=== PATIENT | male | born 1960 | race Caucasian/White ===

== ENCOUNTER 2023-03-31 09:30 | Outpatient (OUT) | payer OTHER, SELFPAY ==
--- NOTE | 2023-03-31 09:34 | CT_ITS ---
[address] [address] Patient Name: HEATHER PIRES MRN: [id number] date: 1960 Sex: M Assigned Patient Location: CT Current Patient Location: Accession/Order Number: [id number] Exam Date: 03/31/2023 09:40 Report Date: 04/01/2023 09:58 At the request of: MANJULA PIEDRA Procedure: CT lung screening low-dose EXAM TYPE: CT lung screening low-dose INDICATION: Current smoker COMPARISON: Noncontrast CT of the chest 03/04/2022, 09/06/2021 TECHNIQUE: Noncontrast, Low dose, helical axial images of the chest were obtained, and thin section, axial MIP, and coronal and sagittal reformats were also submitted from the acquisition scanner under radiologist supervision. Each series was submitted in a lung algorithm. Dose reduction techniques were achieved by using automated exposure control and/or adjustment of mA and/or kV according to patient size and/or use of iterative reconstruction technique. FINDINGS: Please note that this examination was tailored for evaluation of pulmonary nodules, and therefore soft tissue detail is suboptimal. Heart size within normal limits. No pericardial effusion. No aortic aneurysm. No mediastinal, hilar or axillary lymphadenopathy. No central endobronchial nodule. Diffuse emphysematous change. No consolidation or pleural effusion. Calcified granuloma right lower lobe. Bronchial wall thickening with mild fissural nodularity. Stable 3 mm right lower lobe nodule (3, 105) Small sliding hiatal hernia. No acute findings in the upper abdomen. No acute fracture or dislocation. Spondylosis thoracic spine. IMPRESSION : Chronic changes of COPD. Lung RADS category 2: Benign. RECOMMENDATIONS: Continued annual LD screening CT scan of the chest. Electronically authenticated by: CAROLYN MOORE Date: 04/01/2023 09:58
== END 2023-03-31 09:31 | disposition home or self-care (01) ==
LOC: CT 09:30
PROVIDERS: PCP Family Medicine; Visit Provider Family Medicine
DX: F17.210 Nicotine dependence, cigarettes, uncomplicated (principal)
CPT/HCPCS: 71271

== ENCOUNTER 2023-08-09 10:29 | Outpatient (OUT) | payer OTHER, SELFPAY ==
--- OUTSIDE RECORDS SUMMARY | 2023-08-09 10:37 | XMS_ITS | CCD ---
Author Organization [facility] Care Team Providers Care School Social Worker Name Role Phone FEDERICA ., DR VERA Attending Unavailable ALAMO ., DR VERA Admitting Unavailable FURLONG, DR BABATUNDE Florez Primary Care Unavailable ALAMO ., DR VERA Consulting Unavailable FURLONG, DR BABATUNDE Florez Attending Unavailable FURLONG, DR BABATUNDE Florez Admitting Unavailable FURLONG, DR BABATUNDE Florez Primary Care Unavailable FURLONG, DR BABATUNDE Florez Consulting Unavailable ZIEBER, DR BERTHA Sher Consulting Unavailable FURLONG, DR BABATUNDE Florez Consulting Unavailable FURLONG, DR BABATUNDE Florez Attending Unavailable FURLONG, DR BABATUNDE Florez Admitting Unavailable FURLONG, DR BABATUNDE Florez Primary Care Unavailable FLAGSTAFF, DR RAY Francis Consulting Unavailable BABATUNDE FOREMAN Primary Care Physician [phone] Jaime ALAMO Attending Unavailable Jaime ALAMO Attending Unavailable Furlong Babautnde CALLEJAS Primary Care Provider Allergies Allergy Classification Reported Allergen(s) Allergy Type Date of Onset Reaction(s) Facility (3 sources) Penicillin; Translations: [penicillin] Drug Allergy Hives [facility] Repository (1 source) Penicillins Propensity to adverse reactions to drug 2 Hives, Itching [facility] Medications Current Medications Medication Drug Class(es) Dates Sig (Normalized) Sig (Original) aspirin 81 mg delayed release oral tablet (1 source) Platelet Aggregation Inhibitor, Nonsteroidal Anti-inflammatory Drug take 1 tablet by mouth in the morning aspirin 81 mg Take 1 tablet (81 mg total) by mouth in the morning. 0 Active benazepril hydrochloride 20 mg / hydroCHLOROthiazide 12.5 mg oral tablet (2 sources) Thiazide Diuretic, Angiotensin Converting Enzyme Inhibitor Start: 04-09-2023 take 2 tablets by mouth once daily benazepril-hydr oCHLOROthiazide (LOTENSIN HCT) 20-12.5 mg per tablet TAKE 2 TABLETS BY MOUTH EVERY DAY 180 tablet 1 04/09/2023 Active Start: 12-05-2019 take 1 tablet by liu th once daily benazepril-hydrochlorothiazide 20 mg-12. 5 mg Tab tab(s), Oral, Daily, Refill(s) 0 Start Date: 12/05/19 Status: Ordered ibuprofen 200 mg oral tablet (1 source) Nonsteroidal Anti-inflammatory Drug take 1 tablet by mouth every six hours as needed for pain ibuprofen (ADVIL,MOTRIN) 200 mg tablet Take 1 tablet (200 mg total) by mouth every 6 (six) hours as needed for pain. 0 Active icosapent ethyl 1000 mg oral capsule (1 source) Start: 2022 take 2 capsules by mouth at bedtime icosapent ethyL (VASCEPA) 1 gram capsule Indications: Hypertriglyceridemia Take 2 capsules (2 g total) by mouth in the morning and 2 capsules (2 g total) before bedtime. 360 capsule 3 03/09/2023 Active Multi Vitamin+ (1 source) Start: 2019 Multi Vitamin+ Refill(s) 0 Start Date: 12/05/19 Status: Ordered multivitamin-min erals-lutein (MULTIVITAMIN 50 PLUS) tablet (1 source) multivitamin-min erals-lute in (MULTIVITAMIN 50 PLUS) tablet daily. 0 Active omega-3 acid ethyl esters (group home) 1000 mg oral capsule (2 sources) Start: 2023 omega-3 acid ethyl esters (LOVAZA) 1 gram capsule TAKE 2 CAPSULES BY MOUTH TWICE DAILY 360 capsule 1 05/15/2023 Active Start: 06-23-2022 omega-3 polyun saturated fatty acids ethyl esters 1000 mg Cap Refills(s) 0 Start Date: 06/23/22 Status: Ordered psyllium seed, sugar, (METAMUCIL, SUGAR,) powder (1 source) psyllium seed, s ugar, (METAMUCIL, SUGAR,) powder daily. 0 Active rosuvastatin calcium 40 mg oral tablet (2 sources) HMG-CoA Reductase Inhibitor Start: take 1 tablet by mouth once daily rosuvastatin (CRESTOR) 40 mg tablet TAKE 1 TABLET BY MOUTH EVERY DAY 90 tablet 3 04/09/2023 Active Start: 12-05-2019 take 1 mg by mouth once daily rosuvastatin 40 mg Tab mg tab(s), Oral, Daily, Refills(s) 0 Start Date: 12/05/19 Status: Ordered tamsulosin hydrochloride 0.4 mg oral capsule (2 sources) alpha-Adrenergic Lida Start: 01-09-2022 take 1 capsule by mouth once daily Flomax 0.4 mg Cap 0.4 mg = 1 cap(s), Oral, Daily, # 90 cap(s), Refills(s) 3, Pharmacy: [facility] #[id number], 195, cm, 06/20/21 9:32:00 EST, Height/Length Dosing, 135, kg, 06/20/21 9:32:00 EST, Weight Dosing Start Date: 01/09/22 Status: Ordered Problems Active Problems Problem Classification Problem Date Documented Date Episodic/Chronic Disorders of lipid metabolism (2 sources) Hyperlipidemia; Translations: [Hyperlipidemia, unspecified] Onset: 02-27-2022 12-05-2019 Chronic Diverticulosis and diverticulitis (1 source) Diverticulosis of sigmoid colon; Translations: [Diverticulosis of large intestine without perforation or abscess without bleeding] Onset: 04-13-2020 02-27-2022 Chronic Essential hypertension (2 sources) Hypertensive disorder; Translations: [Essential hypertension] Onset: 02-27-2022 12-05-2019 Chronic Hyperplasia of prostate (7 sources) Benign prostatic hyperplasia with lower urinary tract symptoms; Translations: [Benign prostatic hypertrophy with outflow obstruction] Onset: 02-27-2022 Chronic Other nutritional; endocrine; and metabolic disorders (1 source) Obesity; Translations: [Obesity, unspecified] Onset: 02-27-2022 02-27-2022 Chronic Residual codes; unclassified (1 source) Family history of cancer; Translations: [Family history of malignant neoplasm of prostate] Onset: 06-23-2022 Episodic Residual codes; unclassified (1 source) Family history of prostate cancer 06-23-2022 Episodic Substance-related disorders (1 source) Nicotine dependence, cigarettes, uncomplicated; Translations: [NICOTINE DEPEND CIGARETTES UNCOMP] Onset: 08-31-2021 Chronic Unclassified (1 source) Asymptomatic microscopic hematuria 06-23-2022 Past or Other Problems Problem Classification Problem Date Documented Da te Episodic/Chronic Abdominal hernia (1 source) Bilateral inguinal hernia; Translations: [Bilateral inguinal hernia, without obstruction or gangrene, not specified as recurrent] Onset: 12-14-2019 02-27-2022 Episodic Disorders of teeth and jaw (1 source) Gingival disease; Translations: [Disorder of gingiva and edentulous alveolar ridge, unspecified] Onset: 11-14-2017 02-27-2022 Episodic Genitourinary symptoms and ill-defined conditions (2 sources) Microscopic hematuria; Translations: [Asymptomatic microscopic hematuria] Onset: 06-23-2022 Episodic Heart valve disorders (2 sources) Heart murmur; Translations: [Cardiac murmur, unspecified] Onset: 02-27-2022 12-05-2019 Episodic Mood disorders (1 source) Mood disorders Onset: 03-09-2023 03-09-2023 Other diseases of veins and lymphatics (1 source) Venous stasis syndrome ; Translations: [Other specified disorders of veins] Onset: 02-27-2022 02-27-2022 Episodic Other lower respiratory disease (4 sources) Solitary pulmonary nodule; Translations: [SOLITARY PULMONARY NODULE] Onset: 03-04-2022 Episodic Other screening for suspected conditions (not mental disorders or infectious disease) (1 source) Abnormal liver function; Translations: [Abnormal results of liver function studies] Onset: 02-27-2022 02-27-2022 Episodic Spondylosis; intervertebral disc disorders; other back problems (4 sources) Cervicalgia; Translations: [CERVICALGIA] Onset: 08-27-2021 Episodic Unclassified (1 source) Onset: 03-09-2023 03-09-2023 Varicose veins of lower extremity (1 source) Skin ulcer; Translations: [Varicose veins of unspecified lower extremity with ulcer of unspecified site] Onset: 02-27-2022 02-27-2022 Episodic Results Test Name Value Interpretation Reference Range Facility [facility] 2022 Lab Reports [id number]: 127 Normal [facility] Patient Educationon 06-24-19 Patient Education Urology Benign Prostatic Hyperplasia Benign prostatic hyperplasia (BPH) is an enlarged prostate gland that is caused by the normal aging process and not by cancer. The prostate is a walnut-sized gland that is involved in the production of semen. It is located in front of the rectum and below the bladder. The bladder stores urine and the urethra is the tube that carries the urine out of the body. The prostate may get bigger as a man gets older. An enlarged prostate can press on the urethra. This can make it harder to pass urine. The build-up of urine in the bladder can cause infection. Back pressure and infection may progress to bladder damage and kidney (renal) failure. What are the causes? This condition is part of a normal aging process. However, not all men develop problems from this condition. If the prostate enlarges away from the urethra, urine flow will not be blocked. If it enlarges toward the urethra and compresses it, there will be problems passing urine. What increases the risk? This condition is more likely to develop in men over the age of 50 years. What are the signs or symptoms? Symptoms of this condition include: ? Getting up often during the night to urinate. ? Needing to urinate frequently during the day. ? Difficulty starting urine flow. ? Decrease in size and strength of your urine stream. ? Leaking (dribbling) after urinating. ? Inability to pass urine. This needs immediate treatment. ? Inability to completely empty your bladder. ? Pain when you pass urine. This is more common if there is also an infection. ? Urinary tract infection (UTI). How is this diagnosed? This condition is diagnosed based on your medical history, a physical exam, and your symptoms. Tests will also be done, such as: ? A post-void bladder scan. This measures any amount of urine that may remain in your bladder after you finish urinating. ? A digital rectal exam. In a rectal exam, your health care provider checks your prostate by putting a lubricated, gloved finger into your rectum to feel the back of your prostate gland. This exam detects the size of your gland and any abnormal lumps or growths. ? An exam of your urine (urinalysis). ? A prostate specific antigen (PSA) screening. This is a blood test used to screen for prostate cancer. ? An ultrasound. This test uses sound waves to electronically produce a picture of your prostate gland. Your health care provider may refer you to a specialist in kidney and prostate diseases (urologist). How is this treated? Once symptoms begin, your health care provider will monitor your condition (active surveillance or watchful waiting). Treatment for this condition will depend on the severity of your condition. Treatment may include: ? Observation and yearly exams. This may be the only treatment needed if your condition and symptoms are mild. ? Medicines to relieve your symptoms, including: ? Medicines to shrink the prostate. ? Medicines to relax the muscle of the prostate. ? Surgery in severe cases. Surgery may include: ? Prostatectomy. In this procedure, the prostate tissue is removed completely through an open incision or with a laparoscope or robotics. ? Transurethral resection of the prostate (TURP). In this procedure, a tool is inserted through the opening at the tip of the penis (urethra). It is used to cut away tissue of the inner core of the prostate. The pieces are removed through the same opening of the penis. This removes the blockage. ? Transurethral incision (TUIP). In this procedure, small cuts are made in the prostate. This lessens the prostate's pressure on the urethra. ? Transurethral microwave thermotherapy (TUMT). This procedure uses microwaves to create heat. The heat destroys and removes a small amount of prostate tissue. ? Transurethral needle ablation (TUNA). This procedure uses radio frequencies to destroy and remove a small amount of prostate tissue. ? Interstitial laser coagulation (ILC). This procedure uses a laser to destroy and remove a small amount of prostate tissue. ? Transurethral electrovaporization (TUVP). This procedure uses electrodes to destroy and remove a small amount of prostate tissue. ? Prostatic urethral lift. This procedure inserts an implant to push the lobes of the prostate away from the urethra. Follow these instructions at home: ? Take [id number] and prescription medicines only as told by your health care provider. ? Monitor your symptoms for any changes. Contact your health care provider with any changes. ? Avoid drinking large amounts of liquid before going to bed or out in public. ? Avoid or reduce how much caffeine or alcohol you drink. ? Give yourself time when you urinate. ? Keep all follow-up visits as told by your health care provider. This is important. Contact a health care provider if: ? You have unexplained back pain. ? Your symptoms do not get better with treatment. ? You d (more content not included)... Normal [facility] Urology Office/Clinic Noteon 06-23-2022 Urology Office/Clinic Note Chief Complaint 1 year with PSA HPI Staff Pt is here for 1 year f/u with PSA. Previous dx of BPH with urinary obstruction, microhematuria and family hx of prostate cancer. Current PSA done 06/14/22 is 0.76 and previous done 06/09/21 was 0.99. Pt continues taking Tamsulosin 0.4mg qd. Dysuria: no Incomplete bladder emptying: no Hematuria: no Frequency: no Urgency: no Nocturia: 1-2x Stream: good stream no straining Leaking: no Post void dripping: no Wearing pads/ Depends: no Urge incontinence: no Stress incontinence: no Incontinence without Sensory Awareness: no Abdominal pain: no Flank pain: no Sexual complaints: no History of Present Illness Tests reviewed: reviewed UA & PSA. I have reviewed the previous health record information and history for this patient from Dr. Alamo. I have reviewed and verified the staff HPI to be accurate for this encounter. There have been no associated fever, chills, flank pain, or blood in the urine. Denies any urinary infections since last encounter. Review of Systems PHQ Score Initial Depression Screen Score: 0 ROS - Provider Constitutional: denies weight loss, denies hot flashes. Eyes: denies eye problems. Gastrointestinal: denies nausea, denies vomiting. Cardiovascular: denies chest pain or angina. Integumentary: no dryness Musculoskeletal: denies musculoskeletal symptoms. ENMT: denies otolaryngeal symptoms. Respiratory: no shortness of breath. Heme/Lymph: denies easy bleeding tendency, denies easy bruising tendency. Psychiatric: no confusion, no anxiety. Genitourinary: denies dysuria, denies hematuria, denies discharge, denies urinary frequency, denies urinary hesitancy, denies nocturia, denies incontinence, denies genital sores, denies decreased libido, and denies erectile dysfunction. Physical Exam Vitals & Measurements HR: 82(Peripheral) RR: 16 BP: 136/86 HT: 77 in HT: 195 cm WT: 136 kg WT: 299.2 lb BMI: 35.77 General Appearance: alert, no distress, well nourished, well developed male. Genitourinary: normal scrotum, normal testes, normal urethra, normal epididymis, normal vas deferens/spermatic cord. Flank Pain: none. Bladder: nonpalpable. Prostate: normal prostate, estimated weight 30 gms, no hard nodule observed. Assessment/Plan 1. BPH with urinary obstruction (N40.1: Benign prostatic hyperplasia with lower urinary tract symptoms) PSA 12/08/19 - 0.75 06/09/21 - 0.99 06/14/22 - 0.76 Patient continues Tamsulosin 0.4mg daily. States his stream is decent, denies hesitancy and feels he is emptying all the way. Inquired about doing more to improve urination. Discussed increasing Flomax to BID for one week, pt. willing to try. If pt. is happy with results he is to call the office so a new script can be sent to pharmacy. Patient to continue medication management and call for refills when needed. Follow up in 1 year w/ PSA. All questions/concerns were discussed. Pt. to call the office if heencounters any issues prior. Pt. acknowledges understanding. 2. Asymptomatic microscopic hematuria (R31.21: Asymptomatic microscopic hematuria) S/p Cysto 12/16/19. Neg FISH/cytology 11/2019. UA today shows TRACE-INTACT. Denies gross hematuria. Pt. aware to call if he would witness gross blood. 3. Family history of prostate cancer (Z80.42: Family history of malignant neoplasm of prostate) Uncle. Follow-up With When Contact Information FEDERICA DOMINGUEZ, Jaime Sher, [place] [address]- Additional Instructions: 1 year w/ PSA Patient Education Benign Prostatic Hyperplasia Shaila Lopez, personally scribed for Dr. Alamo on 06/23/2022 10:51:51. . Documentation recorded by the scribShaila ackerman, accurately reflects the services(s) I performed and decisions made by me. Authenticated by Dr. Alamo on 06/23/2022 10:54:50. Problem List/Past Medical History Ongoing Asymptomatic microscopic hematuria BPH with urinary obstruction Family history of prostate cancer Heart murmur Hyperlipidemia Hypertension Historical No qualifying data Procedure/Surgical History Cystoscopy (12/16/2019), CE - Cataract extraction, History of nasal sinus surgery, Tonsillectomy. Medications benazepril-hydrochloroth iazide 20 mg-12.5 mg Tab, Oral, Daily Flomax 0.4 mg Cap, 0.4 mg= 1 cap(s), Oral, Daily, 3 refills Multi Vitamin+ omega-3 polyunsaturated fatty acids ethyl esters 1000 mg Cap rosuvastatin 40 mg Tab, Oral, Daily Allergies penicillin (Hives) Social History Tobacco 5-9 cigarettes (between 1/4 to 1/2 pack)/day in last 30 days Tobacco Use:. Yes, 06/18/2020 5-9 cigarettes (between 1/4 to 1/2 pack)/day in last 30 days Tobacco Use:. Yes, 12/05/2019 Family History Arthritis: Mother. Primary malignant neoplasm of lung: Father. Immunizations Vaccine Date Status Comments SARS-CoV-2 (COVID-19) mRNA BNT-162b2 vax 2020 Recorded Pt has had shot (more content not included)... Normal [facility] Comment on above: Result Comment: Elec tronically Signed By: Jaime ALAMO MD\.br\Date and Time Signed: 06/23/22 10:54 EST\.br\Electronically Co-Signed By: Shaila Julien.br\Date and Time Co-Signed: 06/23/22 10:[address] CHEST WO CONon 03-07-2022 CT CHEST WO CON EXAMINATION: CT CHES T WO CON HISTORY: Solitary nodule of lung follow-up COMPARISON: CT chest 08/27/2021, 08/07/2020 TECHNIQUE: Axial, Coronal, and Sagittal images were created without the administration of IV contrast material. Dose reduction techniques were achieved by using automated exposure control and/or adjustment of mA and/or kV according to patient size and/or use of iterative reconstruction technique. FINDINGS: LUNGS: Mild emphysematous changes and stable appearance of a few tiny 3 mm nodules scattered within the lungs. Clearing of previously seen 8 mm groundglass attenuation within posterior medial left lower lobe. PLEURA: No mass, effusion, or pneumothorax. VASCULATURE: No abnormality. TAL: No mass or adenopathy. MEDIASTINUM: No mass or adenopathy. CARDIAC: No enlargement or pericardial thickening. AORTA: No aneurysm or dissection. CHEST WALL: No mass or axillary adenopathy. BONES: No bone lesion or fracture. LIMITED ABDOMEN: No suspicious findings. Limited images of the upper abdomen. OTHER: Negative. IMPRESSION: 1. Clearing of the new 8 mm groundglass attenuation seen on prior study within left lower lobe (inadvertently described as right lower lobe on prior study). 2. Stable mild emphysematous changes and a few tiny 3 mm nodules scattered within the lungs. Annual screening should be continued if patient is at increased risk for lung cancer. Electronically authenticated by: BERTHA HICKS Date: 2022-03-07 09:11 Normal [facility] CT LUNG CANCER SCREENINGon 0 08-27-2021 CT LUNG CANCER SCREENING EXAMINATION: CT LUNG CANCER SCREENING HISTORY: Tobacco dependence caused by cigarettes COMPARISON: 08/07/2020 TECHNIQUE: Axial, Coronal, and Sagittal images were created without the administration of IV contrast material. Dose reduction techniques were achieved by using automated exposure control and/or adjustment of mA and/or kV according to patient size and/or use of iterative reconstruction technique. FINDINGS: LUNGS: Moderate moderate diffuse peribronchial thickening, increased from the prior exam. Stable mild diffuse centrilobular emphysema. Scattered subcentimeter pulmonary nodules, grossly stable with exception of a new area of wedge-shaped groundglass attenuation measuring 8.4 x 5.6 mm in the right lower lobe axial image 102 PLEURA: No mass, effusion, or pneumothorax. VASCULATURE: No abnormality. TAL: No mass or pathologic adenopathy. MEDIASTINUM: No mass or pathologic adenopathy. CARDIAC: No enlargement or pericardial effusion. Moderate to heavy coronary atherosclerosis AORTA: No aneurysm or dissection. CHEST WALL: No mass or axillary adenopathy BONES: No bone lesion or fracture. LIMITED ABDOMEN: No suspicious findings. Limited images of the upper abdomen. OTHER: Negative. IMPRESSION: New 8.4 mm area of groundglass attenuation in the right lower lobe. Six-month follow-up recommended LUNG SCREENING: Lung-RADS Category 3- Probably benign. Probably benign finding(s)- short term follow up suggested; includes nodules with a low likelihood of becoming a clinically active cancer. Six month LDCT. Electronically authenticated by: RAY RODGERS Date: 2021-08-27 10:22 Normal [facility] XR CSPINE 2_3 VIEWSon 2021 XR CSPINE 2_3 VIEWS EXAMINATION: XR CSPINE 2_3 VIEWS HISTORY: Neck pain COMPARISON: No relevant comparison available. FINDINGS: BONES: Normal alignment from the skull base to C5. C6 and C7 are not seen. Mild to moderate degenerative spondylosis and facet osteoarthropathy most significant at C4-C5 DISC SPACES: Mild to moderate multilevel disc space narrowing most significant C4-5 and C5-C6 PARASPINOUS: Negative. No paraspinous abnormality is seen. OTHER: Negative. IMPRESSION: Limited exam. Mild to moderate degenerative changes Electronically authenticated by: RAY RODGERS Date: 2021-08-27 10:03 Normal [facility] CBC (INCLUDES DIFF/PLT)on Basophils (Bld) [#/Vol] 0.071 10*3/uL Normal 0-200 [facility] Comment on above: Performed By: #### 6 399, 7600, [id number] #### [facility] [place] [address] [employer]: Nish Pompa MD Basophils/100 WBC (Bld) 1.4 % Normal [facility] Comment on above: Performed By: #### 6 399, 7600, [id number] #### [facility] [place] [address] [employer]: Nish Pompa MD Eosinophils (Bld) [#/Vol] 0.26 10*3/uL Normal 15-500 [facility] Comment on above: Performed By: #### 6 399, 7600, [id number] #### [facility] [place] [address] [employer]: Nish Pompa MD Eosinophils/100 WBC (Bld) 5.1 % Normal [facility] Comment on above: Performed By: #### 6 399, 7600, [id number] #### [facility] [place] [address] [employer]: Nish Pompa MD Erythrocyte distribution width (RBC) [Ratio] 13.1 % Normal 11.0-15.0 [facility] Comment on above: Performed By: #### 6 399, 7600, [id number] #### [facility] [place] [address] [employer]: Nish Pompa MD Hematocrit (Bld) [Volume fraction] 43.4 % Normal 38.5-50.0 [facility] Comment on above: Performed By: #### 6 399, 7600, [id number] #### [facility] [place] [address] [employer]: Nish Pompa MD Hemoglobin (Bld) [Mass/Vol] 14.7 g/dL Normal 13.2-17.1 [facility] Comment on above: Performed By: #### 6 399, 7600, [id number] #### [facility] [place] [address] [employer]: Nish Pompa MD Lymphocytes (Bld) [#/Vol] 1.918 10*3/uL Normal 850-3900 [facility] Comment on above: Performed By: #### 6 399, 7600, [id number] #### [facility] [place] [address] [employer]: Nish Pompa MD Lymphocytes/100 WBC (Bld) 37.6 % Normal [facility] Comment on above: Performed By: #### 6 399, 7600, 16180 #### [facility] [place] [address] [employer]: Nish Pompa MD MCH (RBC) [Entitic mass] 30.3 pg Normal 27.0-33.0 [facility] Comment on above: Performed By: #### 6 399, 7600, [id number] #### [facility] [place] [address] [employer]: Nish Pompa MD MCHC (RBC) [Mass/Vol] 33.9 g/dL Normal 32.0-36.0 [facility] Comment on above: Performed By: #### 6 399, 7600, [id number] #### [facility] [place] [address] [employer]: Nish Pompa MD MCV (RBC) [Entitic vol] 89.5 fL Normal 80.0-100.0 [facility] Comment on above: Performed By: #### 6 399, 7600, 63588 #### [facility] [place] [address] [employer] Service Technician Poultry: Nish Pompa MD Monocytes (Bld) [#/Vol] 0.388 10*3/uL Normal 200-950 [facility] Comment on above: Performed By: #### 6 399, 7600, 06792 #### [facility] [place] [address] Field Service Technician Poultry: Nish Pompa MD Monocytes/100 WBC (Bld) 7.6 % Normal [facility] Comment on above: Performed By: #### 6 399, 7600, 01466 #### [facility] [place] [address] Field Service Technician Poultry: Nish Pompa MD Neutrophils (Bld) [#/Vol] 2.463 10*3/uL Normal 6000-9783 [facility] Comment on above: Performed By: #### 6 399, 7600, 47495 #### [facility] [place] [address] Field Service Technician Poultry: Nish Pompa MD Neutrophils/100 WBC (Bld) 48.3 % Normal [facility] Comment on above: Performed By: #### 6 399, 7600, 13580 #### [facility] [place] [address] Field Service Technician Poultry: Nish Pompa MD Platelet mean volume (Bld) [Entitic vol] 11.6 fL Normal 7.5-12.5 [facility] Comment on above: Performed By: #### 6 399, 7600, 40076 #### [facility] [place] [address] Field Service Technician Poultry: Nish Pompa MD Platelets (Bld) [#/Vol] 201 10*3/uL Normal 140-400 [facility] Comment on above: Performed By: #### 6 399, 7600, 87595 #### [facility] [address], [address] [place] [address] Field Service Technician Poultry: Nish Pompa MD RBC (Bld) [#/Vol] 4.85 10*6/uL Normal 4.20-5.80 [facility] Comment on above: Performed By: #### 6 399, 7600, 95574 #### [facility] of [address], [address] [place] [address] Field Service Technician Poultry: Nish Pompa MD WBC (Bld) [#/Vol] 5.1 10*3/uL Normal 3.8-10.8 [facility] Comment on above: Performed By: #### 6 399, 7600, 14291 #### [facility] [place] [address] Field Service Technician Poultry: Nish Pompa MD COMPREHENSIVE METABOLIC PANE [facility] 08-20-2021 Albumin [Mass/Vol] 4.3 g/dL Normal 3.6-5.1 [facility] Comment on above: Performed By: #### 6 399, 7600, 05296 #### [facility] [address], [address] [place] [address] Field Service Technician Poultry: Nish Pompa MD Albumin/Globulin [Mass ratio] 2.3 {ratio} Normal 1.0-2.5 [facility] Comment on above: Performed By: #### 6 399, 7600, 31131 #### [facility] [address], [address] [place] [address] Field Service Technician Poultry: Nish Pompa MD ALP [Catalytic activity/Vol] 54 U/L Normal 35-144 [facility] Comment on above: Performed By: #### 6 399, 7600, 91091 #### [facility] [place] [address] Field Service Technician Poultry: Nish Pompa MD ALT [Catalytic activity/Vol] 28 U/L Normal 9-46 [facility] Comment on above: Performed By: #### 6 399, 7600, 65697 #### [facility] [address] [place] [address] Field Service Technician Poultry: Nish oPmpa MD AST [Catalytic activity/Vol] 21 U/L Normal 10-35 [facility] Comment on above: Performed By: #### 6 399, 7600, 97989 #### [facility] [place] [address] Field Service Technician Poultry: Nish Pompa MD Bilirubin [Mass/Vol] 0.5 mg/dL Normal 0.2-1.2 [facility] Comment on above: Performed By: #### 6 399, 7600, 02059 #### [facility] [place] [address] Field Service Technician Poultry: Nish Pompa MD BUN/CREATININE RATIO NOT APPLICABLE Normal 6-22 [facility] Comment on above: Performed By: #### 6 399, 7600, 58926 #### [facility] [place] [address] Field Service Technician Poultry: Nish Pompa MD Calcium [Mass/Vol] 9.6 mg/dL Normal 8.6-10.3 [facility] Comment on above: Performed By: #### 6 399, 7600, 01262 #### [facility] [place] [address] Field Service Technician Poultry: Nish Pompa MD Chloride [Moles/Vol] 106 mmol/L Normal 98-110 [facility] Comment on above: Performed By: #### 6 399, 7600, 50812 #### [facility] [place] [address] Field Service Technician Poultry: Nish Pompa MD CO2 [Moles/Vol] 28 mmol/L Normal 20-32 [facility] Comment on above: Performed By: #### 6 399, 7600, 87030 #### [facility] [place] [address] Field Service Technician Poultry: Nish Pompa MD Creatinine [Mass/Vol] 0.97 mg/dL Normal 0.70-1.25 [facility] Comment on above: Result Comment: For patients >49 years of age, the reference limit for Creatinine is approximately 13% higher for people identified as -Cam[place]onian. Performed By: #### 6 399, 7600, 79931 #### [facility] [place] [address] Field Service Technician Poultry: Nish Pompa MD eGFR NON-AFR. [place] CITIZEN 84 mL/min/1.73m2 Normal > OR = 60 [facility] Comment on above: Performed By: #### 6 399, 7600, 36971 #### [facility] [address], [address] [place] [address] Field Service Technician Poultry: Nish Pompa MD GFR/1.73 sq M.predicted among blacks MDRD (S/P/Bld) [Vol rate/Area] 97 mL/min/{1.73_m2} Normal > OR = 60 [facility] Comment on above: Performed By: #### 6 399, 7600, 47347 #### [facility] [place] [address] Field Service Technician Poultry: Nish Pompa MD Globulin (S) [Mass/Vol] 1.9 g/dL Normal 1.9-3.7 [facility] Comment on above: Performed By: #### 6 399, 7600, 90773 #### [facility] [place] [address] Field Service Technician Poultry: Nish Pompa MD Glucose [Mass/Vol] 102 mg/dL High 65-99 [facility] Comment on above: Result Comment: Fasting reference interval For someone without known diabetes, a glucose value between 100 and 125 mg/dL is consistent with prediabetes and should be confirmed with a follow-up test. Performed By: #### 6 399, 7600, 20616 #### [facility] [place] [address] Field Service Technician Poultry: Nish Pompa MD Potassium [Moles/Vol] 4.1 mmol/L Normal 3.5-5.3 [facility] Comment on above: Performed By: #### 6 399, 7600, 04740 #### [facility] [address], [address] [place] [address] Field Service Technician Poultry: Nish Pompa MD Protein [Mass/Vol] 6.2 g/dL Normal 6.1-8.1 [facility] Comment on above: Performed By: #### 6 399, 7600, 80869 #### [facility] [address], [address] [place] [address] Field Service Technician Poultry: Nish Pompa MD Sodium [Moles/Vol] 141 mmol/L Normal 135-146 [facility] Comment on above: Performed By: #### 6 399, 7600, 48809 #### [facility] [place] [address] Field Service Technician Poultry: Nish Pompa MD Urea nitrogen [Mass/Vol] 19 mg/dL Normal 7-25 [facility] Comment on above: Performed By: #### 6 399, 7600, 95439 #### [facility] [place] [address] Field Service Technician Poultry: Nish Pompa MD LIPID PANEL, [facility] 07-24 Cholesterol [Mass/Vol] 150 mg/dL Normal <200 [facility] Comment on above: Order Comment: FASTI NG:YES FASTING: YES Performed By: #### 6 399, 7600, 22937 #### [facility] [place] [address] Field Service Technician Poultry: Nish Pompa MD Cholesterol in HDL [Mass/Vol] 37 mg/dL Low > OR = 40 [facility] Comment on above: Order Comment: FASTI NG:YES FASTING: YES Performed By: #### 6 399, 7600, 39208 #### [facility] [place] [address] Field Service Technician Poultry: Nish Pompa MD Cholesterol in LDL [Mass/Vol] 83 mg/dL Normal [facility] Comment on above: Order Comment: FASTI NG:YES FASTING: YES Result Comment: Refe rence range: <100 Desirable range <100 mg/dL for primary prevention; <70 mg/dL for patients with CHD or diabetic patients with > or = 2 CHD risk factors. LDL-C is now calculated using the Jesus calculation, which is a validated novel method providing better accuracy than the Friedewald equation in the estimation of LDL-C. Hitesh MIRZA et al. SHAHEEN. 2013;310(19): 3765-0774 (http://education.[facility].Bunch/faq/TDO474) Performed By: #### 6 399, 7600, 80283 #### [facility] [address], [address] [place] [address] Field Service Technician Poultry: Nish Pompa MD Cholesterol.total/ Cholesterol in HDL [Mass ratio] 4.1 {ratio} Normal <5.0 [facility] Comment on above: Order Comment: FASTI NG:YES FASTING: YES Performed By: #### 6 399, 7600, 59506 #### [facility] [address], [address] [place] [address] Field Service Technician Poultry: Nish Pompa MD NON HDL CHOLESTEROL 113 mg/dL (calc) Normal <130 [facility] Comment on above: Order Comment: FASTI NG:YES FASTING: YES Result Comment: For patients with diabetes plus 1 major ASCVD risk factor, treating to a non-HDL-C goal of <100 mg/dL (LDL-C of <70 mg/dL) is considered a therapeutic option. Performed By: #### 6 399, 7600, 07722 #### [facility] [address], [address] [place] [address] Field Service Technician Poultry: Nish Pompa MD Triglyceride [Mass/Vol] 207 mg/dL High <150 [facility] Comment on above: Order Comment: FASTI NG:YES FASTING: YES Result Comment: If a non-fasting specimen was collected, consider repeat triglyceride testing on a fasting specimen if clinically indicated. Yolanda et al. J. of Clin. Lipidol. 2015;9:129-169. Performed By: #### 6 399, 7600, 11911 #### [facility] [address], [address] [place] [address] Field Service Technician Poultry: Nish Pompa MD PSA, TOTALon 08-20-2021 PSA, TOTAL 0.67 ng/mL Normal < OR = 4.00 [facility] Comment on above: Result Comment: The total PSA value from this assay system is standardized against the WHO standard. The test result will be approximately 20% lower when compared to the equimolar-standardized total PSA (Nish Nadine). Comparison of serial PSA results should be interpreted with this fact in mind. This test was performed using the Siemens chemiluminescent method. Values obtained from different assay methods cannot be used interchangeably. PSA levels, regardless of value, should not be interpreted as absolute evidence of the presence or absence of disease. Performed By: #### 6 399, 7600, 29286 #### [facility] [place] [address] Field Service Technician Poultry: Nish Pompa MD BASIC METABOLIC PANEL 01-22 BUN/CREATININE RATIO NOT APPLICABLE Normal 6-22 [facility] Comment on above: Performed By: #### 7 600, 13055 #### [facility] [place] [address] Field Service Technician Poultry: Nish Pompa MD Calcium [Mass/Vol] 9.5 mg/dL Normal 8.6-10.3 [facility] Comment on above: Performed By: #### 7 600, 57224 #### [facility] [place] [address] Field Service Technician Poultry: Nish Pompa MD Chloride [Moles/Vol] 105 mmol/L Normal 98-110 [facility] Comment on above: Performed By: #### 7 600, 41120 #### [facility] [place] [address] Field Service Technician Poultry: Nish Pompa MD CO2 [Moles/Vol] 27 mmol/L Normal 20-32 [facility] Comment on above: Performed By: #### 7 600, 56022 #### [facility] [place] [address] Field Service Technician Poultry: Nish Pompa MD Creatinine [Mass/Vol] 0.90 mg/dL Normal 0.70-1.25 [facility] Comment on above: Result Comment: For patients >49 years of age, the reference limit for Creatinine is approximately 13% higher for people identified as -Cameroonian. Performed By: #### 7 600, 55371 #### [facility] [address], [address] [place] [address] Field Service Technician Poultry: Nish Pompa MD eGFR NON-AFR. [place] CITIZEN 93 mL/min/1.73m2 Normal > OR = 60 [facility] Comment on above: Performed By: #### 7 600, 29090 #### [facility] [address], [address] [place] [address] Field Service Technician Poultry: Nish Pompa MD GFR/1.73 sq M.predicted among blacks MDRD (S/P/Bld) [Vol rate/Area] 107 mL/min/{1.73_m2} Normal > OR = 60 [facility] Comment on above: Performed By: #### 7 600, 49678 #### [facility] [address], [address] [place] [address] Field Service Technician Poultry: Nish Pompa MD Glucose [Mass/Vol] 104 mg/dL High 65-99 [facility] Comment on above: Result Comment: Fasting reference interval For someone without known diabetes, a glucose value between 100 and 125 mg/dL is consistent with prediabetes and should be confirmed with a follow-up test. Performed By: #### 7 600, 22388 #### [facility] [address], [address] [place] [address] Field Service Technician Poultry: Nish Pompa MD Potassium [Moles/Vol] 3.9 mmol/L Normal 3.5-5.3 [facility] Comment on above: Performed By: #### 7 600, 78642 #### [facility] [place] [address] Field Service Technician Poultry: Nish Pompa MD Sodium [Moles/Vol] 139 mmol/L Normal 135-146 [facility] Comment on above: Performed By: #### 7 600, 94200 #### [facility] [address], [address] [place] [address] Field Service Technician Poultry: Nish Pompa MD Urea nitrogen [Mass/Vol] 15 mg/dL Normal 7-25 [facility] Comment on above: Performed By: #### 7 600, 43001 #### [facility] [address], [address] [place] [address] Field Service Technician Poultry: Nish Pompa MD LIPID PANEL, [facility] 10-2 Cholesterol [Mass/Vol] 142 mg/dL Normal <200 [facility] Comment on above: Order Comment: FASTI NG:YES FASTING: YES Performed By: #### 7 600, 41696 #### [facility] [address], [address] [place] [address] Field Service Technician Poultry: Nish Pompa MD Cholesterol in HDL [Mass/Vol] 37 mg/dL Low > OR = 40 [facility] Comment on above: Order Comment: FASTI NG:YES FASTING: YES Performed By: #### 7 600, 01834 #### [facility] [address], [address] [place] [address] Field Service Technician Poultry: Nish Pompa MD Cholesterol in LDL [Mass/Vol] 77 mg/dL Normal [facility] Comment on above: Order Comment: FASTI NG:YES FASTING: YES Result Comment: Refe rence range: <100 Desirable range <100 mg/dL for primary prevention; <70 mg/dL for patients with CHD or diabetic patients with > or = 2 CHD risk factors. LDL-C is now calculated using the Jesus calculation, which is a validated novel method providing better accuracy than the Friedewald equation in the estimation of LDL-C. Hitesh MIRZA et al. SHAHEEN. 2013;310(19): 8690-0740 (http://education.[facility].Bunch/faq/GJS433) Performed By: #### 7 600, 78590 #### [facility] [address], [address] [place] [address] Field Service Technician Poultry: Nish Pompa MD Cholesterol.total/ Cholesterol in HDL [Mass ratio] 3.8 {ratio} Normal <5.0 [facility] Comment on above: Order Comment: FASTI NG:YES FASTING: YES Performed By: #### 7 600, 18871 #### [facility] [address], [address] [place] [address] Field Service Technician Poultry: Nish Pompa MD NON HDL CHOLESTEROL 105 mg/dL (calc) Normal <130 [facility] Comment on above: Order Comment: FASTI NG:YES FASTING: YES Result Comment: For patients with diabetes plus 1 major ASCVD risk factor, treating to a non-HDL-C goal of <100 mg/dL (LDL-C of <70 mg/dL) is considered a therapeutic option. Performed By: #### 7 600, 76485 #### [facility] [address], [address] [place] [address] Field Service Technician Poultry: Nish Pompa MD Triglyceride [Mass/Vol] 190 mg/dL High <150 [facility] Comment on above: Order Comment: FASTI NG:YES FASTING: YES Performed By: #### 7 600, 55361 #### [facility] [address], [address] [place] [address] Field Service Technician Poultry: Nish Pompa MD Vital Signs Date Time Vital Sign Value Performing Clinician Aj spear 06-23-2022 09:39-0500 Blood Pressure Location Jaime ALAMO [facility] 06-23-2022 09:39-0500 Diastolic blood pressure 86 mm[Hg] Jaime ALAMO [facility] 06-23-2022 09:39-0500 Heart rate 82 /min Jaime ALAMO [facility] 06-23-2022 09:39-0500 Respiratory rate 16 /min Jaime ALAMO [facility] 06-23-2022 09:39-0500 Systolic blood pressure 136 mm[Hg] Jaime ALAMO [facility] Encounters Encounter Date Encounter Type Care Provider Facility Start: 06-29-2023 ambulatory Jaime ALAMO Facili ty:[facility] Start: 05-15-2023 Refill Alyssa Estrada [facility] Start: 06-23-2022 End: 06-24-2022 ambulatory Jaime [facility]AMO [facility] Start: 06-23-2022 End: 06-23-2022 Patient encounter procedure Jaime ALAMO [facility] Start: 06-14-2022 End: 06-15-[address] JAIME ALAMO . Facility: Start: 03-04-2022 End: 03-05-[address] BABATUNDE FOREMAN Facility: Start: 01-09-2022 ambulatory Jaime ALAMO Facility :[facility] Start: 08-27-2021 End: 08-28-[address] BABATUNDE FOREMAN Facility:[facility] Procedures Date Procedure Procedure Detail Performing Clinician Start: 03-09-2023 Adult depression scr eening assessment Alyssa Estrada [facility] Start: 06-14-[address] ANDRÉS ALAMO . Comment on above: Performed By: #### P SAD #### [facility] [address] [place] [address] Dr. Vivek Herrera Start: 12-16-2019 Cystoscopy Jaime WALKER Extraction of cataract Fabien ALAMO History of nasal sin us surgery Jaime ALAMO Tonsillectomy Jaime ALAMO Plan of Treatment Date Care Activity Detail Author Start: 09-03-2032 DTaP,Tdap and Td Vaccines (3 - Td or Tdap) DTaP,Tdap and Td Vaccines (3 - Td or Tdap) [facility] Start: 03-09-2024 Adult BMI Follow Up Plan Adult BMI Follow Up Plan [facility] Start: 03-09-2024 Adult BMI Screening Adult BMI Screening [facility] Start: 03-09-2024 Depression Screening Depression Screening [facility] Start: 03-09-2024 Tobacco Screening Tobacco Screening [facility] Start: 09-10-2023 End: 09-10-2023 Patient encounter procedure 09/10/2023 10:00 AM EDT Office Visit [facility] - [facility] Medicine [address] [place] [address] Babatunde Foreman DO [address], [facility] [place] [address] [facility] Start: 2005 Screening for malignant neoplasm of colon Colon Cancer Screening 5 Year Sigmoidoscopy [facility] Start: 1960 Tobacco Counseling Tobacco Counseling [facility] Immunizations Immunization Date Immunization Notes Care Provider Fa cility 01-30-2022 Covid-19, Mrna, Lnp- s, Bivalent, Pf, 50mcg/0.5ml or 25mcg/0.25ml Alyssa Natalie [facility] 01-30-2022 Influenza, injectabl e, Madin Karen Canine Kidney, preservative free, quadrivalent Alyssa Natalie [facility] 12-15-2020 influenza, seasonal, injectable Alyssa Natalie [facility] 09-06-2020 COVID-19, mRNA, LNP- S, PF, 30mcg/0.3mL Dose Alyssa Natalie [facility] 08-31-2020 COVID-19, mRNA, LNP- S, PF, 30mcg/0.3mL Dose Layssa Natalie [facility] 08-16-2020 COVID-19, mRNA, LNP- S, PF, 30mcg/0.3mL Dose Alyssa Natalie [facility] 08-10-2020 COVID-19, mRNA, LNP- S, PF, 30mcg/0.3mL Dose Alyssa Natalie [facility] 04-23-2020 SARS-CoV-2 (COVID-19 ) mRNA BNT-162b2 milagro ALAMO [facility] Remigio Comment on above: Result Comment: Pt h as had shots to date 02-11-2020 influenza, seasonal, injectable, preservative free Alyssa Natalie [facility] 01-01-2020 influenza, injectabl e, quadrivalent, preservative free Alyssa Natalie [facility] 01-08-2019 Influenza, injectabl e, Madin Karen Canine Kidney, preservative free, quadrivalent Alyssa Natalie [facility] 02-13-2018 influenza, injectabl e, quadrivalent, preservative free Alyssa Natalie [facility] 02-08-2017 Influenza, injectabl e, Madin Karen Canine Kidney, preservative free, quadrivalent Alyssa Natalie [facility] 01-30-2017 influenza virus vaccine, unspecified formulation Alyssalorenza Alexanderett [facility] 03-01-2016 influenza, seasonal, injectable, preservative free Alyssa Natalie [facility] 04-12-2015 influenza, seasonal, injectable Alyssa Natalie [facility] 02-26-2015 tetanus toxoid, redu aden diphtheria toxoid, and acellular pertussis vaccine, adsorbed Alyssalorenza Estrada [facility] 02-18-2015 influenza, seasonal, injectable, preservative free Alyssa Natalie [facility] 03-24-2014 influenza, seasonal, injectable Alyssa Natalie [facility] 03-24-2014 zoster vaccine, live Alyssalorenza Estrada [facility] 03-19-2013 influenza, seasonal, injectable Alyssa Natalie [facility] Payers Date Payer Category Payer Private Health Insurance [facility] [employer] [id number] 2022-Present [phone] [address] [address] [place] [address] [id number] 1960 Unknown [id number] 1960 Unknown [id number] 1960 Unknown [id number] 1960 Unknown [id number] 1960 Unknown [id number] 1960 Unknown [id number] 1959 Unknown [id number] 1959 Unknown [id number] Social History Date Type Detail Facility Start: 06-18-2020 Tobacco smoking status Light t obacco smoker (finding) [facility] Start: 02-26-2022 End: 03-09-2023 Sex Assigned At Male [facility] Start: 03-09-2023 [facility] History of tobacco use Cigarette Smoker P [facility] Start: 02-26-2022 End: 03-09-2023 Cigarettes smoked current (pack per day) - Reported 0.3 [facility] Start: 03-09-2023 Tobacco use and exposure Smokeless tobacco non-user [facility] Start: 03-09-2023 Alcohol intake Current drinke r of alcohol (finding) [facility] Has the Fashion To Figure, or [employer] threatened to shut off services in your home in past 12Mo No [facility] Are you now , , , , never or living with a partner? [facility] How often to you hav e a drink containing alcohol? Monthly or less [facility] How many standard drinks containing alcohol do you have on a typical day? 1 or 2 [facility] How often do you hav e 6 or more drinks on 1 occasion? Never [facility] How hard is it for y ou to pay for the very basics like food, housing, medical care, and heating Not hard at all [facility] Do you feel stress - tense, restless, nervous, or anxious, or unable to sleep at night because your mind is troubled all the time - these days [OSQ] Not at all [facility] Start: 02-26-2022 Education 15 [facility] Start: 03-09-2023 Tobacco Comment He did smoke a pack for 20+ years [facility] Start: 08-15-2021 Alcohol Comment social [facility] Start: 1960 Sex Assigned At Male P [facility] Start: 08-16-2021 Gender identity Identifies as male gender (finding) [facility] Start: 08-16-2021 Sexual orientation Heterosexual (beto mtz) [facility] Medical Equipment Procedure Code Equipment Code Equipment Origin al Text Equipment Identifier Dates Lens Iol Panop [id number] 9.5d - [id number] - [id number] Start: 08-16-2021 Functional Status Date Assessment Result Facility 06-23-2022 Functional Status N/A [facility] Discharge instructions 06-23-2022 Note Date & Type Note Facility 06-23-2022 Hospital Discharge instructions Patient Education 06/23/2022 10:48:34 Benign Prostatic Hyperplasia Benign Prostatic Hyperplasia Benign prostatic hyperplasia (BPH) is an enlarged prostate gland that is caused by the normal aging process and not by cancer. The prostate is a walnut-sized gland that is involved in the production of semen. It is located in front of the rectum and below the bladder. The bladder stores urine and the urethra is the tube that carries the urine out of the body. The prostate may get bigger as a man gets older. An enlarged prostate can press on the urethra. This can make it harder to pass urine. The build-up of urine in the bladder can cause infection. Back pressure and infection may progress to bladder damage and kidney (renal) failure. What are the causes? This condition is part of a normal aging process. However, not all men develop problems from this condition. If the prostate enlarges away from the urethra, urine flow will not be blocked. If it enlarges toward the urethra and compresses it, there will be problems passing urine. What increases the risk? This condition is more likely to develop in men over the age of 50 years. What are the signs or symptoms? Symptoms of this condition include: Getting up often during the night to urinate. Needing to urinate frequently during the day. Difficulty starting urine flow. Decrease in size and strength of your urine stream. Leaking (dribbling) after urinating. Inability to pass urine. This needs immediate treatment. Inability to completely empty your bladder. Pain when you pass urine. This is more common if there is also an infection. Urinary tract infection (UTI). How is this diagnosed? This condition is diagnosed based on your medical history, a physical exam, and your symptoms. Tests will also be done, such as: A post-void bladder scan. This measures any amount of urine that may remain in your bladder after you finish urinating. A digital rectal exam. In a rectal exam, your health care provider checks your prostate by putting a lubricated, gloved finger into your rectum to feel the back of your prostate gland. This exam detects the size of your gland and any abnormal lumps or growths. An exam of your urine (urinalysis). A prostate specific antigen (PSA) screening. This is a blood test used to screen for prostate cancer. An ultrasound. This test uses sound waves to electronically produce a picture of your prostate gland. Your health care provider may refer you to a specialist in kidney and prostate diseases (urologist). How is this treated? Once symptoms begin, your health care provider will monitor your condition (active surveillance or watchful waiting). Treatment for this condition will depend on the severity of your condition. Treatment may include: Observation and yearly exams. This may be the only treatment needed if your condition and symptoms are mild. Medicines to relieve your symptoms, including: ?Medicines to shrink the prostate. ?Medicines to relax the muscle of the prostate. Surgery in severe cases. Surgery may include: ?Prostatectomy. In this procedure, the prostate tissue is removed completely through an open incision or with a laparoscope or robotics. ?Transurethral resection of the prostate (TURP). In this procedure, a tool is inserted through the opening at the tip of the penis (urethra). It is used to cut away tissue of the inner core of the prostate. The pieces are removed through the same opening of the penis. This removes the blockage. ?Transurethral incision (TUIP). In this procedure, small cuts are made in the prostate. This lessens the prostate's pressure on the urethra. ?Transurethral microwave thermotherapy (TUMT). This procedure uses microwaves to create heat. The heat destroys and removes a small amount of prostate tissue. ?Transurethral needle ablation (TUNA). This procedure uses radio frequencies to destroy and remove a small amount of prostate tissue. ?Interstitial laser coagulation (ILC). This procedure uses a laser to destroy and remove a small amount of prostate tissue. ?Transurethral electrovaporization (TUVP). This procedure uses electrodes to destroy and remove a small amount of prostate tissue. ?Prostatic urethral lift. This procedure inserts an implant to push the lobes of the prostate away from the urethra. Follow these instructions at home: Take [id number] and prescription medicines only as told by your health care provider. Monitor your symptoms for any changes. Contact your health care provider with any changes. Avoid drinking large amounts of liquid before going to bed or out in public. Avoid or reduce how much caffeine or alcohol you drink. Give yourself time when you urinate. Keep all follow-up visits as told by your health care provider. This is important. Contact a health care provider if: You have unexplained back pain. Your symptoms do not get better with treatment. You develop side effects from the medicine you are taking. Your urine becomes very dark or has a bad smell. Your lower abdomen becomes distended and you have trouble passing your urine. Get help right away if: You have a fever or chills. You suddenly cannot urinate. You feel lightheaded, or very dizzy, or you faint. There are large amounts of blood or clots in the urine. Your urinary problems become hard to manage. You develop moderate to severe low back or flank pain. The flank is the side of your body between the ribs and the hip. These symptoms may represent a serious problem that is an emergency. Do not wait to see if the symptoms will go away. Get medical help right away. Call your local emergency services (911 in the [place] Do not drive yourself to the hospital. Summary Benign prostatic hyperplasia (BPH) is an enlarged prostate that is caused by the normal aging process and not by cancer. An enlarged prostate can press on the urethra. This can make it hard to pass urine. This condition is part of a normal aging process and is more likely to develop in men over the age of 50 years. Get help right away if you suddenly cannot urinate. This information is not intended to replace advice given to you by your health care provider. Make sure you discuss any questions you have with your health care provider. Document Released: 04/09/2006 Document Revised: 03/04/2019 Document Reviewed: 05/14/2017 [employer] Patient Education 2020 [place]. Follow Up Care 06/20/2021 10:48:14 With:FEDERICA DOMINGUEZ, Jaime Sher, URL Address: [address] [place] [id number] When: Unknown [facility] Evaluation + Plan note Note Date & Type Note Facility Evaluation + Plan note Future Appointments Appointment Date:06/29/2023 09:30:00 AM Scheduled Provider:Jaime ALAMO MD Location:[facility] Appointment Type:URO Office Visit Diagnostic Tests PendingPSA Total 05/24/23 [facility] Hospital course Narrative Note Date & Type Note Facility Hospital course Narrative No data available for this section [facility] Instructions Note Date & Type Note Facility Instructions Not on filedocumented in this en counter [facility] Progress note Note Date & Type Note Facility Progress note No data available for this section [facility] Summary Purpose Family History No Family History Records FoundNo Family History Records FoundNo Family History Records Found Advance Directives No Advanced Directives Records FoundNo Advanced Directives Records FoundNo Advanced Directives Records Found Additional Source Comments (unrecognized sect ion and content) No Status Records FoundNo Status Records FoundNo Status Records Found INFORMATION SOURCE (unrecogn ized section and content) DATE CREATED AUTHOR 08/22/2021 [facility] DATE CREATED AUTHOR AUTHOR'S ORGANIZ ATION 06/18/2022 [facility] DATE CREATED AUTHOR AUTHOR'S ORGANIZ ATION 06/27/2022 [facility] Patient Care team informatio n (unrecognized section and content) [employer] Relationship Specialty Start Date End Date Babatunde Foreman DO [address] [facility], [place] [address] PCP - General Family Medicine 08/11/21 Reason for Visit (unrecogniz ed section and content) Reason Onset Date Comments Med Refill 05/15/2023 FOR RECORDS PERTAINING TO PATIENTS WHO ARE OR HAVE BEEN ENROLLED IN A CHEMICAL DEPENDENCY/SUBSTANCEABUSE PROGRAM, SOME INFORMATION MAY BE OMITTED. This clinical summary was aggregated from multiple sources. Caution should be exercised in using it in the provision of clinical care. This summary normalizes information from multiple sources, and as a consequence, information in this document may materially change the coding, format and clinical context of patient data. In addition, data may be omitted in some cases. CLINICAL DECISIONS SHOULD BE BASED ON THE PRIMARY CLINICAL RECORDS. [employer] [facility]. provides no warranty or guarantee of the accuracy or completeness of information in this document.
[2023-08-09 11:53] LABS: Prostate Specific Antigen Dx 0.82 ng/mL (<=4.00)
== END 2023-08-09 10:30 | disposition home or self-care (01) ==
LOC: LAB 10:31
PROVIDERS: PCP Family Medicine; Visit Provider Urology
DX: N40.1 Benign prostatic hyperplasia with lower urinary tract symptoms (principal); Z80.42 Family history of malignant neoplasm of prostate
CPT/HCPCS: 36415; 84153

== ENCOUNTER 2024-04-04 08:23 | Outpatient (OUT) | payer OTHER, SELFPAY ==
--- NOTE | 2024-04-04 | CT_ITS ---
[address] [address] Patient Name: HEATHER PIRES MRN: [id number] date: 1960 Sex: M Assigned Patient Location: CT Current Patient Location: Accession/Order Number: [id number] Exam Date: 04/04/2024 08:35 Report Date: 04/07/2024 11:22 At the request of: MANJULA PIEDRA Procedure: CT lung screening low-dose EXAMINATION: CT lung screening low-dose HISTORY: LUNG CANCER SCREENING, CIGARETTE SMOKER COMPARISON: 03/31/2023 TECHNIQUE: Axial, Coronal, and Sagittal images were created without the administration of IV contrast material. Dose reduction techniques were achieved by using automated exposure control and/or adjustment of mA and/or kV according to patient size and/or use of iterative reconstruction technique. FINDINGS: LUNGS: Mild paraseptal and centrilobular emphysema. Stable scattered subcentimeter pulmonary nodules the largest identified in the superior segment of the left lower lobe axial image #63 measuring 7 x 5 mm PLEURA: No mass, effusion, or pneumothorax. VASCULATURE: No abnormality. TAL: No mass or pathologic adenopathy. MEDIASTINUM: No mass or pathologic adenopathy. CARDIAC: No enlargement or pericardial effusion CORONARY ARTERIES: Coronary calcifications are heavy. AORTA: No aortic aneurysm CHEST WALL: No mass or axillary adenopathy BONES: No bone lesion or fracture. LIMITED ABDOMEN: No suspicious findings. Limited images of the upper abdomen. OTHER: Negative. CT/CT lung screening low-dose IMPRESSION: LUNG SCREENING: Lung-RADS Category 2- Benign Appearance or Behavior. Nodules with a very low likelihood of becoming a clinically active cancer due to size or lack of growth. 2. Continue annual screening with LDCT in 12 months. Electronically authenticated by: RAY RODGERS Date: 04/07/2024 11:22
--- OUTSIDE RECORDS SUMMARY | 2024-04-04 08:30 | XMS_ITS | CCD ---
Author Organization [facility] Care Team Providers Care Box Sealing Machine Catcher Name Role Phone FEDERICA ., DR VERA Attending Unavailable FEDERICA ., DR VERA Admitting Unavailable MELISSANG, DR BABATUNDE Florez Primary Care Unavailable FEDERICA ., DR VERA Consulting Unavailable BENILONG, DR BABATUNDE Florez Attending Unavailable FURLONG, DR BABATUNDE Florez Admitting Unavailable FURLONG, DR BABATUNDE Florez Primary Care Unavailable FURNG, DR BABATUNDE Florez Consulting Unavailable KURT, DR BERTHA Sher Consulting Unavailable FURLONG, DR BABATUNDE Florez Consulting Unavailable FURLONG, DR BABATUNDE Florez Attending Unavailable FURLONG, DR BABATUNDE Florez Admitting Unavailable FURLONG, DR BABATUNDE Florez Primary Care Unavailable WAKEFIELD, DR RAY Francis Consulting Unavailable BABATUNDE FOREMAN Primary Care Physician [phone] Babatunde Foreman DO Primary Care Provider [phone] Jaime ALAMO Attending Unavailable Jaime ALAMO Attending Unavailable JE BISHOP Referring Unavailable BABATUNDE FOREMAN Primary Care Unavailable RAY BUCKNER Attending Unavailable RAY BUCNKER Referring Unavailable BABATUNDE FOREMAN Primary Care Unavailable JE BISHOP Admitting Unavailable JE BISHOP Attending Unavailable JE BISHOP Referring Unavailable BABATUNDE FOREMAN Primary Care Unavailable RAY BUCKNER Attending Unavailable BABATUNDE FOREMAN Primary Care Unavailable BABATUNDE FOREMAN Referring Unavailable BABATUNDE FOREMAN Primary Care Unavailable JE BISHOP Admitting Unavailable JE BISHOP Attending Unavailable JE BISHOP Referring Unavailable BABATUNDE FOREMAN Primary Care Unavailable GÉNESIS JOHNSON Attending Unavailable BABATUNDE FOREMAN Primary Care Unavailable BABATUNDE FOREMAN Referring Unavailable BABATUNDE FOREMAN Primary Care Unavailable DAVID FAJARDO Admitting Unavailable TANADAVID Attending Unavailable THANHSDAVID Referring Unavailable FURLONG, BABATUNDE G Primary Care Unavailable TANADAVID Attending Unavailable THANHSDAVID Referring Unavailable FURLONG, BABATUNDE G Primary Care Unavailable FURLONG, BABATUNDE G Attending Unavailable FURLONG, BABATUNDE G Referring Unavailable FURLONG, BABATUNDE G Primary Care Unavailable FURLONG, BABATUNDE G Attending Unavailable FURLONG, BABATUNDE G Referring Unavailable FURLONG, BABATUNDE G Primary Care Unavailable FURLONG, BABATUNDE G Referring Unavailable FURLONG, BABATUNDE G Primary Care Unavailable FURLONG, BABATUNDE G Referring Unavailable FURLONG, BABATUNDE G Primary Care Unavailable Allergies Allergy Classification Reported Allergen(s) Allergy Type Date of Onset Reaction(s) Facility (4 sources) Penicillin; Translations: [penicillin] Drug Allergy Hives [facility] Repository (7 sources) Penicillins; Translations: [PENICILLINS] Propensity to adverse reactions to drug 2 Hives, Itching [facility] Medications Current Medications Medication Drug Class(es) Dates Sig (Normalized) Sig (Original) aspirin 81 mg delayed release oral tablet (4 sources) Platelet Aggregation Inhibitor, Nonsteroidal Anti-inflammatory Drug take 1 tablet by mouth in the morning aspirin 81 mg Take 1 tablet (81 mg total) by mouth in the morning. Active benazepril hydrochloride 20 mg / hydroCHLOROthiazide 12.5 mg oral tablet (6 sources) Thiazide Diuretic, Angiotensin Converting Enzyme Inhibitor Start: 09-06-2023 take 2 tablets by mouth once daily benazepril-hydr oCHLOROthiazide (LOTENSIN HCT) 20-12.5 mg per tablet take 2 tablets by mouth every day 180 tablet 1 09/06/2023 Active Start: 12-05-2019 take 2 tablets by mouth once daily benazepril-hydroCHLOROthiazide (LOTENSIN HCT) 20-12.5 mg per tablet TAKE 2 TABLETS BY MOUTH EVERY DAY 180 tablet 1 04/09/2023 Active ibuprofen 200 mg oral tablet (4 sources) Nonsteroidal Anti-inflammatory Drug take 1 tablet by mouth every six hours as needed for pain ibuprofen (ADVIL,MOTRIN) 200 mg tablet Take 1 tablet (200 mg total) by mouth every 6 (six) hours as needed for pain. Active icosapent ethyl 1000 mg oral capsule (1 source) Start: 2022 take 2 capsules by mouth at bedtime icosapent ethyL (VASCEPA) 1 gram capsule Indications: Hypertriglyceridemia Take 2 capsules (2 g total) by mouth in the morning and 2 capsules (2 g total) before bedtime. 360 capsule 3 03/09/2023 Active Multi Vitamin+ (2 sources) Start: 2019 Multi Vitamin+ Refill(s) 0 Start Date: 12/05/19 Status: Ordered multivitamin-min erals-lutein (MULTIVITAMIN 50 PLUS) tablet (4 sources) multivitamin-min erals-lute in (MULTIVITAMIN 50 PLUS) tablet Take 1 tablet by mouth in the morning. Active multivitamin-min erals-lutein (MULTIVITAMIN 50 PLUS) tablet daily. 0 Active omega-3 acid ethyl esters (u sp) 1000 mg oral capsule (7 sources) Start: 11-16-2023 End: 03-05-2024 omega-3 acid ethyl esters (LOVAZA) 1 gram capsule TAKE 2 CAPSULES BY MOUTH TWICE DAILY 360 capsule 1 03/05/2024 Active Start: 05-15-2023 omega-3 acid e thyl esters (LOVAZA) 1 gram capsule TAKE 2 CAPSULES BY MOUTH TWICE DAILY 360 capsule 1 05/15/2023 Active Start: 06-23-2022 omega-3 polyun saturated fatty acids ethyl esters 1000 mg Cap Refills(s) 0 Start Date: 06/23/22 Status: Ordered psyllium seed, sugar, (METAMUCIL, SUGAR,) powder (4 sources) take 1 dose by mouth once daily psyllium seed, sugar, (METAMUCIL, SUGAR,) powder Take 1 Dose by mouth daily. Active psyllium seed, s ugar, (METAMUCIL, SUGAR,) powder daily. 0 Active rosuvastatin calcium 40 mg oral tablet (7 sources) HMG-CoA Reductase Inhibitor Start: 03-07-2024 take 1 tablet by mouth once daily rosuvastatin (CRESTOR) 40 mg tablet TAKE 1 TABLET BY MOUTH EVERY DAY 90 tablet 3 03/07/2024 Active Start: 12-05-2019 End: 03-07-2024 take 1 tablet by mouth once daily rosuvastatin (CRESTOR) 40 mg tablet TAKE 1 TABLET BY MOUTH EVERY DAY 90 tablet 3 04/09/2023 03/07/2024 Discontinued tamsulosin hydrochloride 0.4 mg oral capsule (6 sources) alpha-Adrenergic Lida Start: 01-09-2022 take 1 capsule by mouth once daily Flomax 0.4 mg Cap 0.4 mg = 1 cap(s), Oral, Daily, # 90 cap(s), Refills(s) 3, Pharmacy: [id number], 195, cm, 06/23/22 9:54:00 EST, Height/Length Dosing, 136, kg, 06/23/22 9:54:00 EST, Weight Dosing Start Date: 11/14/22 Status: Ordered Problems Active Problems Problem Classification Problem Date Documented Da te Episodic/Chronic Cataract (1 source) Cataract Onset: 09-18-2023 Disorders of lipid metabolism (7 sources) Hyperlipidemia; Translations: [Hyperlipidemia, unspecified] Onset: 02-27-2022 12-05-2019 Chronic Diverticulosis and diverticulitis (4 sources) Diverticulosis of sigmoid colon; Translations: [Diverticulosis of large intestine without perforation or abscess without bleeding] Onset: 04-13-2020 02-27-2022 Chronic Essential hypertension (11 sources) Hypertensive disorder; Translations: [Essential hypertension] Onset: 02-27-2022 12-05-2019 Chronic Hyperplasia of prostate (12 sources) Benign prostatic hyperplasia with lower urinary tract symptoms; Translations: [Benign prostatic hypertrophy with outflow obstruction] Onset: 02-27-2022 Chronic Other and unspecified benign neoplasm (1 source) Polyp of colon; Translations: [Polyp of colon] Onset: 11-21-2023 Episodic Other diseases of veins and lymphatics (5 sources) Venous stasis syndrome ; Translations: [Other specified disorders of veins] Onset: 02-27-2022 02-27-2022 Episodic Other gastrointestinal disorders (1 source) Other fecal abnormalities; Translations: [Other fecal abnormalities] Onset: 11-11-2023 Episodic Other nutritional; endocrine; and metabolic disorders (4 sources) Obesity; Translations: [Obesity, unspecified] Onset: 02-27-2022 02-27-2022 Chronic Other nutritional; endocrine; and metabolic disorders (1 source) Severe obesity; Translations: [Class 2 severe obesity due to excess calories with serious comorbidity and body mass index (BMI) of 39.0 to 39.9 in adult ([facility])] 11-20-2024 Chronic Other nutritional; endocrine; and metabolic disorders (2 sources) Body mass index (BMI) 39.0-39.9, adult; Translations: [Body mass index (BMI) 39.0-39.9, adult] Onset: 02-27-2022 Chronic Other nutritional; endocrine; and metabolic disorders (2 sources) Morbid (severe) obesity due to excess calories; Translations: [Morbid (severe) obesity due to excess calories] Onset: 02-27-2022 Chronic Other nutritional; endocrine; and metabolic disorders (1 source) Body mass index (BMI) 37.0-37.9, adult; Translations: [Body mass index (BMI) 37.0-37.9, adult] Onset: 02-27-2022 Chronic Residual codes; unclassified (2 sources) Family history of cancer; Translations: [Family history of malignant neoplasm of prostate] Onset: 06-23-2022 Episodic Residual codes; unclassified (2 sources) Family history of prostate cancer 06-23-2022 Episodic Substance-related disorders (4 sources) Nicotine dependence, cigarettes, uncomplicated; Translations: [Cigarette smoker ] Onset: 08-31-2021 03-12-2024 Chronic Unclassified (2 sources) Asymptomatic microscopic hematuria 06-23-2022 Unclassified (2 sources) Obesity, class 2; Translations: [Obesity, class 2] Onset: 02-27-2022 Unclassified (1 source) Annual Exam Onset: 09-10-2023 Past or Other Problems Problem Classification Problem Date Documented Da te Episodic/Chronic Abdominal hernia (4 sources) Bilateral inguinal hernia; Translations: [Bilateral inguinal hernia, without obstruction or gangrene, not specified as recurrent] Onset: 12-14-2019 02-27-2022 Episodic Disorders of teeth and jaw (4 sources) Gingival disease; Translations: [Disorder of gingiva and edentulous alveolar ridge, unspecified] Onset: 11-14-2017 02-27-2022 Episodic Genitourinary symptoms and ill-defined conditions (6 sources) Microscopic hematuria; Translations: [Asymptomatic microscopic hematuria] Onset: 06-23-2022 Episodic Heart valve disorders (7 sources) Heart murmur; Translations: [Cardiac murmur, unspecified] Onset: 02-27-2022 12-05-2019 Episodic Mood disorders (4 sources) Mood disorders Onset: 03-09-2023 Resolved: 09-10-2023 03-09-2023 Other and unspecified benign neoplasm (3 sources) Polyp of ascending colon; Translations: [Polyp of colon] Onset: 11-21-2023 11-21-2023 Episodic Other diseases of veins and lymphatics (1 source) Other specified disorders of veins; Translations: [Other specified disorders of veins] Onset: 02-27-2022 Episodic Other gastrointestinal disorders (3 sources) Stool DNA-based colorectal cancer screening positive; Translations: [Other fecal abnormalities] Onset: 11-11-2023 11-11-2023 Episodic Other lower respiratory disease (4 sources) Solitary pulmonary nodule; Translations: [SOLITARY PULMONARY NODULE] Onset: 03-04-2022 Episodic Other screening for suspected conditions (not mental disorders or infectious disease) (8 sources) Abnormal liver function; Translations: [Abnormal results of liver function studies] Onset: 02-27-2022 02-27-2022 Episodic Spondylosis; intervertebral disc disorders; other back problems (4 sources) Cervicalgia; Translations: [CERVICALGIA] Onset: 08-27-2021 Episodic Unclassified (4 sources) Onset: 03-09-2023 03-09-2023 Varicose veins of lower extremity (4 sources) Skin ulcer; Translations: [Varicose veins of unspecified lower extremity with ulcer of unspecified site] Onset: 02-27-2022 02-27-2022 Episodic Results Test Name Value Interpretation Reference Range Facility COMPREHENSIVE METABOLIC PANE Darell 03-12-2024 Albumin [Mass/Vol] 4.2 g/dL Normal 3.2-5.3 [facility] Comment on above: Performed By: #### C TERE GIRON #### [facility] ([id number]) [address] [place] [address] ALP [Catalytic activity/Vol] 49 U/L Normal 39-130 [facility] Comment on above: Performed By: #### C SARITA GIRONR #### [facility] ([id number]) [address] [place] [address] ALT [Catalytic activity/Vol] 34 U/L Normal 0-40 [facility] Comment on above: Performed By: #### C MACK TSHR #### [facility] ([id number]) [address], [address] [place] [address] Anion gap [Moles/Vol] 6 mmol/L Normal 5-15 [facility] Comment on above: Performed By: #### C MACK, TSHR #### [facility] ([id number]) [address], [address] [place] [address] AST [Catalytic activity/Vol] 30 U/L Normal 0-41 [facility] Comment on above: Performed By: #### C MACK TSHR #### [facility] ([id number]) [address], [address] [place] [address] Bilirubin [Mass/Vol] 0.7 mg/dL Normal 0.3-1.2 [facility] Comment on above: Performed By: #### King GIRON TSHR #### [facility] ([id number]) [address], [address] [place] [address] Calcium [Mass/Vol] 9.2 mg/dL Normal 8.5-10.5 [facility] Comment on above: Performed By: #### King GIRON, TSHR #### [facility] ([id number]) [address], [address] [place] [address] Chloride [Moles/Vol] 104 mmol/L Normal 98-109 [facility] Comment on above: Performed By: #### King GIRON, TSHR #### [facility] ([id number]) [address], [address] [place] [address] CO2 [Moles/Vol] 28 mmol/L Normal 22-32 [facility] Comment on above: Performed By: #### King GIRON, TSHR #### [facility] ([id number]) [address], [address] [place] [address] Creatinine [Mass/Vol] 0.97 mg/dL Normal 0.60-1.30 [facility] Comment on above: Result Comment: METH OD TRACEABLE TO IDMS STANDARD Performed By: #### C MACK TSHR #### [facility] ([id number]) [address], [address] [place] [address] GFR/1.73 sq M.predicted among non-blacks MDRD (S/P/Bld) [Vol rate/Area] 88 mL/min/{1.73_m2} Normal >59 [facility] Comment on above: Result Comment: Reported eGFR is based on the CKD-EPI 2020 equation that does not use a race coefficient. Performed By: #### C MACK TSHR #### [facility] ([id number]) [address], [address] [place] [address] Glucose [Mass/Vol] 100 mg/dL High 65-99 [facility] Comment on above: Performed By: #### King GIRON TSHR #### [facility] ([id number]) [address], [address] [place] [address] Potassium [Moles/Vol] 3.8 mmol/L Normal 3.5-5.0 [facility] Comment on above: Performed By: #### King GIRON TSHR #### [facility] ([id number]) [address], [address] [place] [address] Protein [Mass/Vol] 6.4 g/dL Normal 6.0-8.0 [facility] Comment on above: Performed By: #### King GIRON TSHR #### [facility] ([id number]) [address], [address] [place] [address] Sodium [Moles/Vol] 138 mmol/L Normal 134-146 [facility] Comment on above: Performed By: #### King GIRON TSHR #### [facility] ([id number]) [address], [address] [place] [address] Urea nitrogen [Mass/Vol] 21 mg/dL Normal 5-27 [facility] Comment on above: Performed By: #### C MP, TSHR #### [facility] ([id number]) [address] [place] [address], [address] [place] [address] TSH WITH REFLEXon 03-12-2024 TSH 3.36 uIU/mL Normal 0.49-4.67 [facility] Comment on above: Performed By: #### C MP, TSHR #### [facility] ([id number]) [address] [place] [address], [address] [place] [address] Surgical Pathologyon 024 Surgical Pathology Normal [facility] Comment on above: Result Comment: [facility] [address] [place] [address] Surgical Pathology Consultation Patient Name:SANDIP PIRES:1960 (Age: 63)Gender:MTaken:11/21/2023eported:11/23/2023hysician(s):David Fajardo MD ([phone])Copy To: Rec. #:[id number]: #[id number] Final Pathologic Diagnosis Ascending colon polyp: Hyperplastic polyp. Report Electronically Signed Out st11/23/2023Mayra Syed MD Interpretation performed at [facility], [address] [place], [address], License number: [id number]. Clinical History Positive cologuard. Gross Description Received in formalin labeled hernando PIRES colon are 3 pale-zapien delicate soft tissue fragments, 0.1-0.4 cm in greatest dimension. The specimens are filtered and submitted in a single cassette. (1,ns,[id number], m7) TB tgb/11/21/2023SSI Specimen(s) Received Ascending colon polyp Fee Codes(s): 1; 82757 COMPREHENSIVE METABOLIC PANE [facility] 09-10-2023 Albumin [Mass/Vol] 4.1 g/dL Normal 3.2-5.3 [facility] Comment on above: Performed By: #### King GIRON, 34011-6 #### [facility] ([id number]) [address], [address] [place] [address] ALP [Catalytic activity/Vol] 53 U/L Normal 39-130 [facility] Comment on above: Performed By: #### King GIRON, 53423-5 #### [facility] ([id number]) [address], [address] [place] [address] ALT [Catalytic activity/Vol] 25 U/L Normal 0-40 [facility] Comment on above: Performed By: #### King GIRON, 36598-1 #### [facility] ([id number]) [address], [address] [place] [address] Anion gap [Moles/Vol] 9 mmol/L Normal 5-15 [facility] Comment on above: Performed By: #### King GIRON, 99209-4 #### [facility] ([id number]) [address], [address] [place] [address] AST [Catalytic activity/Vol] 22 U/L Normal 0-41 [facility] Comment on above: Performed By: #### King GIRON, 25842-7 #### [facility] ([id number]) [address], [address] [place] [address] Bilirubin [Mass/Vol] 0.4 mg/dL Normal 0.3-1.2 [facility] Comment on above: Performed By: #### King GIRON, 61301-1 #### [facility] ([id number]) [address], [address] [place] [address] Calcium [Mass/Vol] 9.2 mg/dL Normal 8.5-10.5 [facility] Comment on above: Performed By: #### King GIRON, 94874-0 #### [facility] ([id number]) [address], [address] [place] [address] Chloride [Moles/Vol] 106 mmol/L Normal 98-109 [facility] Comment on above: Performed By: #### King GIRON, 47930-4 #### [facility] ([id number]) [address], [address] [place] [address] CO2 [Moles/Vol] 26 mmol/L Normal 22-32 [facility] Comment on above: Performed By: #### King GIRON, 35665-9 #### [facility] ([id number]) [address] [address] [place] [address] Creatinine [Mass/Vol] 0.92 mg/dL Normal 0.60-1.30 [facility] Comment on above: Result Comment: METH OD TRACEABLE TO IDMS STANDARD Performed By: #### King GIRON, 53077-1 #### [facility] ([id number]) [address], [address] [place] [address] eGFR (CKD-EPI) NON-RACE DEPENDENT >90 Normal >59 [facility] Comment on above: Result Comment: Reported eGFR is based on the CKD-EPI 2020 equation that does not use a race coefficient. Performed By: #### King GIRON, 94277-0 #### [facility] ([id number]) [address], [address] [place] [address] Glucose [Mass/Vol] 88 mg/dL Normal 65-99 [facility] Comment on above: Performed By: #### King GIRON, 82563-7 #### [facility] ([id number]) [address] [place] [address] Potassium [Moles/Vol] 3.7 mmol/L Normal 3.5-5.0 [facility] Comment on above: Performed By: #### King GIRON, 24844-1 #### [facility] ([id number]) [address], [address] [place] [address] Protein [Mass/Vol] 6.5 g/dL Normal 6.0-8.0 [facility] Comment on above: Performed By: #### King GIRON, 76848-9 #### [facility] ([id number]) [address], [address] [place] [address] Sodium [Moles/Vol] 141 mmol/L Normal 134-146 [facility] Comment on above: Performed By: #### King GIRNO, 51312-1 #### [facility] ([id number]) [address], [address] [place] [address] Urea nitrogen [Mass/Vol] 20 mg/dL Normal 5-27 [facility] Comment on above: Performed By: #### King GIRON, 11675-6 #### [facility] ([id number]) [address], [address] [place] [address] Lipid 1996 panelon 4 Cholesterol [Mass/Vol] 122 mg/dL Low 150-200 [facility] Comment on above: Performed By: #### King GIRON, 38585-0 #### [facility] ([id number]) [address], [address] [place] [address] Cholesterol in HDL [Mass/Vol] 35 mg/dL Low >39 [facility] Comment on above: Result Comment: HDL <40 mg/dL - High Risk HDL > or = 40mg/dL- Desirable HDL >60 mg/dL - Negative Risk Performed By: #### King GIRON, 57410-2 #### [facility] ([id number]) [address], [address] [place] [address] Cholesterol in LDL [Mass/Vol] 56 mg/dL Normal <130 [facility] Comment on above: Result Comment: LDL <100 mg/dL - Desirable LDL >160 mg/dL - High Risk Performed By: #### C MACK, 19141-3 #### [facility] ([id number]) [address] [address] [place] [address] Cholesterol in VLDL [Mass/Vol] 31 mg/dL High 0-30 [facility] Comment on above: Performed By: #### King GIRON, 84978-6 #### [facility] ([id number]) [address] [address] CHOLESTEROL:HDL 3.5 Normal 1.0-5.0 [facility] Comment on above: Performed By: #### King GIRON, 58413-3 #### [facility] ([id number]) [address], [facility] [address] [place] [address] Triglyceride [Mass/Vol] 154 mg/dL High 27-150 [facility] Comment on above: Performed By: #### King GIRON, 59589-6 #### [facility] ([id number]) [address], [facility] [address] [place] [address] Urology Office/Clinic Noteon 08-27-2023 Urology Office/Clinic Note Chief Complaint 1yr PSA HPI Staff 1 year f/u with PSA Dx: BPH with urinary obstruction, asymptomatic microhematuria and family hx of prostate cancer (uncle) PSA 12/08/19 - 0.75 06/09/21 - 0.99 06/14/22 - 0.76 08/09/23 - 0.82 Tamsulosin 0.4mg qd (did not try BID as recommended at last encounter) Denies all urinary sx at this time. History of Present Illness Tests reviewed: reviewed UA and PSA. I have reviewed the previous health record information and history for this patient from Dr. Alamo. I have reviewed and verified the staff HPI to be accurate for this encounter. There have been no associated fever, chills, flank pain, or blood in the urine. Denies any urinary infections since last encounter. Review of Systems PHQ Score Initial Depression Screen Score: 0 SCORE ROS - Provider Constitutional: denies weight loss, denies hot flashes. Eyes: denies eye problems. Gastrointestinal: denies nausea, denies vomiting. Cardiovascular: denies chest pain or angina. Integumentary: no dryness Musculoskeletal: denies musculoskeletal symptoms. ENMT: denies otolaryngeal symptoms. Respiratory: no shortness of breath. Heme/Lymph: denies easy bleeding tendency, denies easy bruising tendency. Psychiatric: no confusion, no anxiety. Genitourinary: See HPI. Physical Exam Vitals & Measurements HR: 80(Peripheral) RR: 16 BP: 132/89 HT: 77 in HT: 195 cm WT: 136.2 kg WT: 299.64 lb BMI: 35.82 General Appearance: alert, no distress, well nourished, well developed male. Assessment/Plan 1. BPH with urinary obstruction (N40.1: Benign prostatic hyperplasia with lower urinary tract symptoms) PSA: 12/08/19 - 0.75 06/09/21 - 0.99 06/14/22 - 0.76 08/09/23 - 0.82 PSA stable. Will continue to monitor. Taking Flomax 0.4mg qd. Pt was to try bid, however states he did not feel the need to increase to bid. Discussed taking 2 tabs at the same time before he goes to bed. Pt to trial this. If he does not notice improvement pt can decrease to qd. Strong stream. Fully emptying. Nocturia 1-2x. Denies urgency. Denies infections. -Cont Flomax, call for new script if he prefers bid -Follow up in 1 year w/ PSA 2. Asymptomatic microscopic hematuria (R31.21: Asymptomatic microscopic hematuria) S/p Cysto 12/16/19. Neg FISH/cytology 11/2019. UA today shows small blood. Denies gross hematuria. Pt to call the office with visible blood in urine. 3. Family history of prostate cancer (Z80.42: Family history of malignant neoplasm of prostate) Uncle. Follow-up With When Contact Information FEDERICA DOMINGUEZ, Jaime Sher, URL [address] [place] [address]- Additional Instructions: 1 year w/ PSA Patient Education Benign Prostatic Hyperplasia I, Shaila Julien, personally scribed for Dr. Alamo on 08/17/2023 11:05:14. . Problem List/Past Medical History Ongoing Asymptomatic microscopic [...] pack)/day in last 30 days Tobacco Use:. Never Smokeless Tobacco Use:. Household tobacco concerns: No. Yes, 08/17/2023 Family History Arthritis: Mother. Primary malignant neoplasm of lung: Father. Prostate cancer: Uncle. Immunizations Vaccine Date Status Comments influenza virus vaccine, inactivated 02/22/2023 Recorded zoster vaccine, inactivated 11/06/2022 Recorded zoster vaccine, inactivated 09/03/2022 Recorded diphtheria/pertussis, acel/tetanus adult 09/03/2022 Recorded influenza virus vaccine, inactivated 01/30/2022 Recorded SARS-CoV-2 (COVID-19) [id number] 01/30/2022 Recorded influenza virus vaccine, inactivated 12/15/2020 Recorded SARS-CoV-2 (COVID-19) mRNA BNT-162b2 vax 09/06/2020 Recorded SARS-CoV-2 (COVID-19) mRNA BNT-162b2 vax 08/31/2020 Recorded SARS-CoV-2 (COVID-19) mRNA BNT-162b2 vax 08/16/2020 Recorded SARS-CoV-2 (COVID-19) mRNA BNT-162b2 vax 08/10/2020 Recorded SARS-CoV-2 (COVID-19) mRNA BNT-162b2 vax 2020 Recorded Pt has had shots to date influenza virus vaccine, inactivated 02/11/2020 Recorded influenza virus vaccine, inactivated 01/01/2020 Recorded influenza virus vaccine, inactivated 01/08/2019 Recorded influenza virus vaccine, inactivated 02/13/2018 Recorded influenza virus vaccine, inactivated 02/08/2017 Recorded influenza, unspecified formulation 01/30/2017 Recorded influenza virus va (more content not included)... [facility] Comment on above: Result Comment: Elec tronically Signed By: Jaime ALAMO MD\.br\Date and Time Signed: 08/27/23 15:24 EDT\.br\Electronically Co-Signed By: Shaila Julien\.br\Date and Time Co-Signed: 08/17/23 11:06 EDT Ambulatory Visit Summaryon 0 08-17-2023 Ambulatory Visit Summary SANDIP PIRES :1960 Visit Date:08/17/2023 Ambulatory Visit Instructions Your Diagnosis BPH with urinary obstruction Asymptomatic microscopic hematuria Family history of prostate cancer Your Care Team Attending Physician - Jaime ALAMO MD Primary Care Physician - BABATUNDE FOREMAN DO This Is Your Medications List tamsulosin (Flomax 0.4 mg Cap) Contact prescribing physician if questions or concerns benazepril-hydrochloroth iazide (benazepril-hydrochlorot hiazide 20 mg-12.5 mg Tab) multivitamin (Multi Vitamin+) omega-3 polyunsaturated fatty acids (omega-3 polyunsaturated fatty acids ethyl esters 1000 mg Cap) rosuvastatin (rosuvastatin 40 mg Tab) Procedures Performed Cystoscopy (12/16/2019), CE - Cataract extraction, History of nasal sinus surgery, Tonsillectomy. Discharge Vitals Heart Rate (Peripheral) 80 Respiratory Rate 16 Blood Pressure 132/89 Height 195 cm Height 77 in Weight 136.2 kg Weight 299.64 lb BMI 35.82 What to do next Scheduled Follow-Up Appointments Sunday 9:45 AM EDT With: Jaime ALAMO MD Where: [facility] Patient Educationon 08-17-19 Patient Education Urology Benign Prostatic Hyperplasia Benign prostatic hyperplasia (BPH) is an enlarged prostate gland that is caused by the normal aging process. The prostate may get bigger as a man gets older. The condition is not caused by cancer. The prostate is a walnut-sized gland that is involved in the production of semen. It is located in front of the rectum and below the bladder. The bladder stores urine. The urethra carries stored urine out of the body. An enlarged prostate can press on the urethra. This can make it harder to pass urine. The buildup of urine in the bladder can cause infection. Back pressure and infection may progress to bladder damage and kidney (renal) failure. What are the causes? This condition is part of the normal aging process. However, not all men develop problems from this condition. If the prostate enlarges away from the urethra, urine flow will not be blocked. If it enlarges toward the urethra and compresses it, there will be problems passing urine. What increases the risk? This condition is more likely to develop in men older than 50 years. What are the signs or [...] Follow these instructions at home: ? Take ugbv-trs-vxmxowp and prescription medicines only as told by your health care provider. ? Monitor your symptoms for any changes. Contact your health care provider with any changes. ? Avoid drinking large amounts of liquid before going to bed or out in public. ? Avoid or reduce how much caffeine or alcohol you drink. ? Give yourself time when you urinate. ? Keep all follow-up visits. This is important. Contact a health care provider if: ? You have unexplained back pain. ? Your symptoms do not get better with treatment. ? You develop side effects from the medicine (more content not included)... Normal [facility] Lab Reportson 08-11-2023 Lab Reports [id number] Normal [facility] CT CHEST WO CONon 03-07-2022 CT CHEST [...] by: BERTHA HICKS Date: 2022-03-07 09:11 [address] [facility] [address] LUNG CANCER SCREENINGon 0 08-27-2021 CT [...] by: RAY RODGERS Date: 2021-08-27 10:22 Normal [facility] XR CSPINE 2_3 VIEWSon 2021 XR CSPINE [...] by: RAY RODGERS Date: 2021-08-27 10:03 Normal [facility] CBC (INCLUDES DIFF/PLT)on Basophils (Bld) [#/Vol] 0.071 10*3/uL Normal 0-200 [facility] Comment on above: Performed By: #### 6 399, 1140, 33006 #### [facility] [address], [address] [place] [address] Print Developer Automatic: Nish Pompa MD Basophils/100 WBC (Bld) 1.4 % Normal [facility] Comment on above: Performed By: #### 6 399, 5990, 17012 #### [facility] of [address], [address] [place] [address] Print Developer Automatic: Nish Pompa MD Eosinophils (Bld) [#/Vol] 0.26 10*3/uL Normal 15-500 [facility] Comment on above: Performed By: #### 6 399, 7600, 86680 #### [facility] of [address], [address] [place] [address] Print Developer Automatic: Nish Pompa MD Eosinophils/100 WBC (Bld) 5.1 % Normal [facility] Comment on above: Performed By: #### 6 399, 7600, 68109 #### [facility] of [place] [address] Print Developer Automatic: Nish Pompa MD Erythrocyte distribution width (RBC) [Ratio] 13.1 % Normal 11.0-15.0 [facility] Comment on above: Performed By: #### 6 399, 7600, 00999 #### [facility] of [address], [address] [place] [address] Print Developer Automatic: Nish Pompa MD Hematocrit (Bld) [Volume fraction] 43.4 % Normal 38.5-50.0 [facility] Comment on above: Performed By: #### 6 399, 7600, 29859 #### [facility] of [place] [address] Print Developer Automatic: Nish Pompa MD Hemoglobin (Bld) [Mass/Vol] 14.7 g/dL Normal 13.2-17.1 [facility] Comment on above: Performed By: #### 6 399, 7600, 05266 #### [facility] of [place] [address] Print Developer Automatic: Nish Pompa MD Lymphocytes (Bld) [#/Vol] 1.918 10*3/uL Normal 850-3900 [facility] Comment on above: Performed By: #### 6 399, 7600, 69696 #### [facility] of [place] [address] [address] Print Developer Automatic: Nish Pompa MD Lymphocytes/100 WBC (Bld) 37.6 % Normal [facility] Comment on above: Performed By: #### 6 399, 7600, 93137 #### [facility] of [place] [address] Print Developer Automatic: Nish Pompa MD MCH (RBC) [Entitic mass] 30.3 pg Normal 27.0-33.0 [facility] Comment on above: Performed By: #### 6 399, 7600, 86163 #### [facility] of [place] [address] Print Developer Automatic: Nish Pompa MD MCHC (RBC) [Mass/Vol] 33.9 g/dL Normal 32.0-36.0 [facility] Comment on above: Performed By: #### 6 399, 7600, 17718 #### [facility] of [place] [address] Print Developer Automatic: Nish Pompa MD MCV (RBC) [Entitic vol] 89.5 fL Normal 80.0-100.0 [facility] Comment on above: Performed By: #### 6 399, 7600, 64194 #### [facility] of [place] [address] Print Developer Automatic: Nish Pompa MD Monocytes (Bld) [#/Vol] 0.388 10*3/uL Normal 200-950 [facility] Comment on above: Performed By: #### 6 399, 7600, 08674 #### [facility] of [place] [address] Print Developer Automatic: Nish Pompa MD Monocytes/100 WBC (Bld) 7.6 % Normal [facility] Comment on above: Performed By: #### 6 399, 7600, 19939 #### [facility] of [place] [address] Print Developer Automatic: Nish Pompa MD Neutrophils (Bld) [#/Vol] 2.463 10*3/uL Normal 9564-0045 [facility] Comment on above: Performed By: #### 6 399, 7600, 94783 #### [facility] of [place] [address] Print Developer Automatic: Nish Pompa MD Neutrophils/100 WBC (Bld) 48.3 % Normal [facility] Comment on above: Performed By: #### 6 399, 7600, 20386 #### [facility] of [place] [address] Print Developer Automatic: Nish Pompa MD Platelet mean volume (Bld) [Entitic vol] 11.6 fL Normal 7.5-12.5 [facility] Comment on above: Performed By: #### 6 399, 7600, 37415 #### [facility] of [place] [address] Print Developer Automatic: Nish Pompa MD Platelets (Bld) [#/Vol] 201 10*3/uL Normal 140-400 [facility] Comment on above: Performed By: #### 6 399, 7600, 67905 #### [facility] of [place] [address] Print Developer Automatic: Nish Pompa MD RBC (Bld) [#/Vol] 4.85 10*6/uL Normal 4.20-5.80 [facility] Comment on above: Performed By: #### 6 399, 7600, 55975 #### [facility] of [place] [address] Print Developer Automatic: Nish Pompa MD WBC (Bld) [#/Vol] 5.1 10*3/uL Normal 3.8-10.8 [facility] Comment on above: Performed By: #### 6 399, 7600, 41781 #### [facility] of [place] [address] Print Developer Automatic: Nish Pompa MD COMPREHENSIVE METABOLIC PANE [facility] 08-20-2021 Albumin [Mass/Vol] 4.3 g/dL Normal 3.6-5.1 [facility] Comment on above: Performed By: #### 6 399, 7600, 11915 #### [facility] of [place] [address] Print Developer Automatic: Nish Pompa MD Albumin/Globulin [Mass ratio] 2.3 {ratio} Normal 1.0-2.5 [facility] Comment on above: Performed By: #### 6 399, 7600, 05771 #### [facility] of [address], [address] [place] [address] Print Developer Automatic: Nish Pompa MD ALP [Catalytic activity/Vol] 54 U/L Normal 35-144 [facility] Comment on above: Performed By: #### 6 399, 7600, 74207 #### [facility] of [place] [address] Print Developer Automatic: Nish Pompa MD ALT [Catalytic activity/Vol] 28 U/L Normal 9-46 [facility] Comment on above: Performed By: #### 6 399, 7600, 10153 #### [facility] of [address], [address] [place] [address] Print Developer Automatic: Nish Pompa MD AST [Catalytic activity/Vol] 21 U/L Normal 10-35 [facility] Comment on above: Performed By: #### 6 399, 7600, 97333 #### [facility] of [address], [address] [place] [address] Print Developer Automatic: Nish Pompa MD Bilirubin [Mass/Vol] 0.5 mg/dL Normal 0.2-1.2 [facility] Comment on above: Performed By: #### 6 399, 7600, 51266 #### [facility] of [place] [address] Print Developer Automatic: Nish Pompa MD BUN/CREATININE RATIO NOT APPLICABLE Normal 6-22 [facility] Comment on above: Performed By: #### 6 399, 7600, 83085 #### [facility] of [address], [address] [place] [address] Print Developer Automatic: Nish Pompa MD Calcium [Mass/Vol] 9.6 mg/dL Normal 8.6-10.3 [facility] Comment on above: Performed By: #### 6 399, 7600, 38361 #### [facility] [place] [address] Print Developer Automatic: Nish Pompa MD Chloride [Moles/Vol] 106 mmol/L Normal 98-110 [facility] Comment on above: Performed By: #### 6 399, 7600, 31136 #### [facility] [address], [address] [place] [address] Print Developer Automatic: Nish Pompa MD CO2 [Moles/Vol] 28 mmol/L Normal 20-32 [facility] Comment on above: Performed By: #### 6 399, 7600, 87220 #### [facility] [place] [address] Print Developer Automatic: Nish Pompa MD Creatinine [Mass/Vol] 0.97 mg/dL Normal 0.70-1.25 [facility] Comment on above: Result Comment: For patients >49 years of age, the reference limit for Creatinine is approximately 13% higher for people identified as -Monegasque. Performed By: #### 6 399, 7600, 71805 #### [facility] [place] [address] Print Developer Automatic: Nish Pompa MD eGFR NON-AFR. P[place]UA [place] 84 mL/min/1.73m2 Normal > OR = 60 [facility] Comment on above: Performed By: #### 6 399, 7600, 91711 #### [facility] [place] [address] Print Developer Automatic: Nish Pompa MD GFR/1.73 sq M.predicted among blacks MDRD (S/P/Bld) [Vol rate/Area] 97 mL/min/{1.73_m2} Normal > OR = 60 [facility] Comment on above: Performed By: #### 6 399, 7600, 74078 #### [facility] of [place] [address], [address] [place] [address] Print Developer Automatic: Nish Pompa MD Globulin (S) [Mass/Vol] 1.9 g/dL Normal 1.9-3.7 [facility] Comment on above: Performed By: #### 6 399, 7600, 51474 #### [facility] [place] [address] Print Developer Automatic: Nish Pompa MD Glucose [Mass/Vol] 102 mg/dL High 65-99 [facility] Comment on above: Result Comment: Fasting reference interval For someone without known diabetes, a glucose value between 100 and 125 mg/dL is consistent with prediabetes and should be confirmed with a follow-up test. Performed By: #### 6 399, 7600, 69394 #### [facility] [place] [address] Print Developer Automatic: Nish Pompa MD Potassium [Moles/Vol] 4.1 mmol/L Normal 3.5-5.3 [facility] Comment on above: Performed By: #### 6 399, 7600, 80668 #### [facility] [place] [address] Print Developer Automatic: Nish Pompa MD Protein [Mass/Vol] 6.2 g/dL Normal 6.1-8.1 [facility] Comment on above: Performed By: #### 6 399, 7600, 27006 #### [facility] [place] [address] Print Developer Automatic: Nish Pompa MD Sodium [Moles/Vol] 141 mmol/L Normal 135-146 [facility] Comment on above: Performed By: #### 6 399, 7600, 74190 #### [facility] [place] [address] Print Developer Automatic: Nish Pompa MD Urea nitrogen [Mass/Vol] 19 mg/dL Normal 7-25 [facility] Comment on above: Performed By: #### 6 399, 7600, 38834 #### [facility] [address], [address] [place] [address] Print Developer Automatic: Nish Pompa MD LIPID PANEL, [facility] 07-24 Cholesterol [Mass/Vol] 150 mg/dL Normal <200 [facility] Comment on above: Order Comment: FASTI NG:YES FASTING: YES Performed By: #### 6 399, 7600, 69515 #### [facility] [address], [address] [place] [address] Print Developer Automatic: Nish Pompa MD Cholesterol in HDL [Mass/Vol] 37 mg/dL Low > OR = 40 [facility] Comment on above: Order Comment: FASTI NG:YES FASTING: YES Performed By: #### 6 399, 7600, 94019 #### [facility] [address], [address] [place] [address] Print Developer Automatic: Nish Pompa MD Cholesterol in LDL [Mass/Vol] 83 mg/dL Normal [facility] Comment on above: Order Comment: FASTI NG:YES FASTING: YES Result Comment: Refe rence range: <100 Desirable range <100 mg/dL for primary prevention; <70 mg/dL for patients with CHD or diabetic patients with > or = 2 CHD risk factors. LDL-C is now calculated using the Hitesh-Carine calculation, which is a validated novel method providing better accuracy than the Friedewald equation in the estimation of LDL-C. Hitesh MIRZA et al. SHAHEEN. 2013;310(19): 4802-5215 (http://education.Realtime Worlds.Shhmooze/faq/BXX213) Performed By: #### 6 399, 7600, 42045 #### [facility] [address], [address] [place] [address] Print Developer Automatic: Nish Pompa MD Cholesterol.total/ Cholesterol in HDL [Mass ratio] 4.1 {ratio} Normal <5.0 [facility] Comment on above: Order Comment: FASTI NG:YES FASTING: YES Performed By: #### 6 399, 7600, 49723 #### [facility] [address], [address] [place] [address] Print Developer Automatic: Nish Pompa MD NON HDL CHOLESTEROL 113 mg/dL (calc) Normal <130 [facility] Comment on above: Order Comment: FASTI NG:YES FASTING: YES Result Comment: For patients with diabetes plus 1 major ASCVD risk factor, treating to a non-HDL-C goal of <100 mg/dL (LDL-C of <70 mg/dL) is considered a therapeutic option. Performed By: #### 6 399, 7600, 36866 #### [facility] [address], [address] [place] [address] Print Developer Automatic: Nish Pompa MD Triglyceride [Mass/Vol] 207 mg/dL High <150 [facility] Comment on above: Order Comment: FASTI NG:YES FASTING: YES Result Comment: If a non-fasting specimen was collected, consider repeat triglyceride testing on a fasting specimen if clinically indicated. Yolanda et al. J. of Clin. Lipidol. 2015;9:129-169. Performed By: #### 6 399, 7600, 77787 #### [facility] [address], [address] [place] [address] Print Developer Automatic: Nish Pompa MD PSA, TOTALon 08-20-2021 PSA, TOTAL 0.67 ng/mL Normal < OR = 4.00 [facility] Comment on above: Result Comment: The total PSA value from this assay system is standardized against the WHO standard. The test result will be approximately 20% lower when compared to the equimolar-standardized total PSA (Nish [place]). Comparison of serial PSA results should be interpreted with this fact in mind. This test was performed using the Siemens chemiluminescent method. Values obtained from different assay methods cannot be used interchangeably. PSA levels, regardless of value, should not be interpreted as absolute evidence of the presence or absence of disease. Performed By: #### 6 399, 7600, 90559 #### [facility] [address], [address] [place] [address] Print Developer Automatic: Nish Pompa MD BASIC METABOLIC PANELon 10-2 BUN/CREATININE RATIO NOT APPLICABLE Normal 6- [facility] Comment on above: Performed By: #### 7 600, 41915 #### [facility] [address], [address] [place] [address] Print Developer Automatic: Nish Pompa MD Calcium [Mass/Vol] 9.5 mg/dL Normal 8.6-10.3 [facility] Comment on above: Performed By: #### 7 600, 32138 #### [facility] of [address], [address] [place] [address] Print Developer Automatic: Nish Pompa MD Chloride [Moles/Vol] 105 mmol/L Normal 98-110 [facility] Comment on above: Performed By: #### 7 600, 50599 #### [facility] of [address], [address] [place] [address] Print Developer Automatic: Nish Pompa MD CO2 [Moles/Vol] 27 mmol/L Normal 20-32 [facility] Comment on above: Performed By: #### 7 600, 23339 #### [facility] [address], [address] [place] [address] Print Developer Automatic: Nish Pompa MD Creatinine [Mass/Vol] 0.90 mg/dL Normal 0.70-1.25 [facility] Comment on above: Result Comment: For patients >49 years of age, the reference limit for Creatinine is approximately 13% higher for people identified as -Monegasque. Performed By: #### 7 600, 06249 #### [facility] [address], [address] [place] [address] Print Developer Automatic: Nish Pompa MD eGFR NON-AFR. PAPUA [place] 93 mL/min/1.73m2 Normal > OR = 60 [facility] Comment on above: Performed By: #### 7 600, 66266 #### [facility] of [address], [address] [place] [address] Print Developer Automatic: Nish Pompa MD GFR/1.73 sq M.predicted among blacks MDRD (S/P/Bld) [Vol rate/Area] 107 mL/min/{1.73_m2} Normal > OR = 60 [facility] Comment on above: Performed By: #### 7 600, 46337 #### [facility] of [address], [address] [place] [address] Print Developer Automatic: Nish Pompa MD Glucose [Mass/Vol] 104 mg/dL High 65-99 [facility] Comment on above: Result Comment: Fasting reference interval For someone without known diabetes, a glucose value between 100 and 125 mg/dL is consistent with prediabetes and should be confirmed with a follow-up test. Performed By: #### 7 600, 94243 #### [facility] [place] [address] Print Developer Automatic: Nish Pompa MD Potassium [Moles/Vol] 3.9 mmol/L Normal 3.5-5.3 [facility] Comment on above: Performed By: #### 7 600, 02602 #### [facility] [place] [address] Print Developer Automatic: Nish Pompa MD Sodium [Moles/Vol] 139 mmol/L Normal 135-146 [facility] Comment on above: Performed By: #### 7 600, 51215 #### [facility] [place] [address] Print Developer Automatic: Nish Pompa MD Urea nitrogen [Mass/Vol] 15 mg/dL Normal 7-25 [facility] Comment on above: Performed By: #### 7 600, 06333 #### [facility] [place] [address] Print Developer Automatic: Nish Pompa MD LIPID PANEL, [facility] 10-2 Cholesterol [Mass/Vol] 142 mg/dL Normal <200 [facility] Comment on above: Order Comment: FASTI NG:YES FASTING: YES Performed By: #### 7 600, 12347 #### [facility] [place] [address] Print Developer Automatic: Nish Pompa MD Cholesterol in HDL [Mass/Vol] 37 mg/dL Low > OR = 40 [facility] Comment on above: Order Comment: FASTI NG:YES FASTING: YES Performed By: #### 7 600, 90331 #### [facility] [address], [address] [place] [address] Print Developer Automatic: Nish Pompa MD Cholesterol in LDL [Mass/Vol] [...] of LDL-C. Hitesh MIRZA et al. SHAHEEN. 2013;310(16): 3482-6360 (http://education.Yeahka/faq/WYQ272) Performed By: #### 7 600, 84948 #### [facility] [address], [address] [place] [address] Print Developer Automatic: Nish Pompa MD Cholesterol.total/ Cholesterol in HDL [Mass ratio] 3.8 {ratio} Normal <5.0 [facility] Comment on above: Order Comment: FASTI NG:YES FASTING: YES Performed By: #### 7 600, 31966 #### [facility] [place] [address] Print Developer Automatic: Nish Pompa MD NON HDL CHOLESTEROL 105 mg/dL (calc) Normal <130 [facility] Comment on above: Order Comment: FASTI NG:YES FASTING: YES Result Comment: For patients with diabetes plus 1 major ASCVD risk factor, treating to a non-HDL-C goal of <100 mg/dL (LDL-C of <70 mg/dL) is considered a therapeutic option. Performed By: #### 7 600, 61474 #### [facility] [place] [address] Print Developer Automatic: Nish Pompa MD Triglyceride [Mass/Vol] 190 mg/dL High <150 [facility] Comment on above: Order Comment: FASTI NG:YES FASTING: YES Performed By: #### 7 600, 54721 #### [facility] [address], [address] [place] [address] Print Developer Automatic: Nish Pompa MD Vital Signs Date Time Vital Sign Value Performing Clinician Aj spear 03-12-2024 09:33-0500 Body height 195.6 cm Babatunde Furlong DO Work Phone: [facility] 03-12-2024 09:33-0500 Body mass index (BMI) [Ratio] 39.23 kg/m2 Babautnde Furlong DO Work Phone: [facility] 03-12-2024 09:33-0500 Body temperature 98.2 [degF] [facility]-12-2024 09:33-0500 Body weight 150.05 kg Babatunde Furlong DO Work Phone: [facility] 03-12-2024 09:33-0500 Diastolic blood pressure 76 mm[Hg] Babatunde Furlong DO Work Phone: [facility] 03-12-2024 09:33-0500 Heart rate 82 /min Babatunde Furlong DO Work Phone: [facility] 03-12-2024 09:33-0500 Respiratory rate 18 /min Babatunde Furlong DO Work Phone: [facility] 03-12-2024 09:33-0500 SaO2% (BldA) [Mass fraction] 92 % Babatunde Furlong DO Work Phone: [facility] 03-12-2024 09:33-0500 Systolic blood pressure 120 mm[Hg] Babatunde Furlong DO Work Phone: [facility] 08-17-2023 10:17-0400 Blood Pressure Location Jaime ALAMO [facility] 08-17-2023 10:17-0400 Diastolic blood pressure 89 mm[Hg] Jaime ALAMO [facility] 08-17-2023 10:17-0400 Heart rate 80 /min Jaime ALAMO [facility] [facility] 08-17-2023 10:17-0400 Respiratory rate 16 /min Jaime ALAMO [facility] 08-17-2023 10:17-0400 Systolic blood pressure 132 mm[Hg] Jaime ALAMO [facility] 06-23-2022 09:39-0500 Blood Pressure Location Jaime ALAMO [facility] 06-23-2022 09:39-0500 Diastolic blood pressure 86 mm[Hg] Jaime ALAMO [facility] 06-23-2022 09:39-0500 Heart rate 82 /min Jaime ALAMO [facility] 06-23-2022 09:39-0500 Respiratory rate 16 /min Jaime ALAMO [facility] 06-23-2022 09:39-0500 Systolic blood pressure 136 mm[Hg] Jaime ALAMO [facility] Encounters Encounter Date Encounter Type Care Provider Facility Start: 08-08-2024 ambulatory Jaime ALAMO Facili ty:[facility] Start: 03-12-2024 End: 03-12-2024 amb[facility] Start: 03-12-2024 End: 03-12-2024 Office outpatient visit 25 minutes Babatunde Foreman DO Work Phone: [facility] Comment on above: Essential hypertensi on (Primary Dx); Abnormal liver function; Cigarette smoker; Venous stasis syndrome; Class 2 severe obesity due to excess calories with serious comorbidity and body mass index (BMI) of 39.0 to 39.9 in adult ([facility]) Start: 03-12-2024 End: 03-12-2024 ambulatory [facility] Start: 03-07-2024 End: 03-07-2024 Refill [facility] DO Work Phone: [facility] Start: 03-05-2024 End: 03-05-2024 Refill [facility] DO Work Phone: [facility] Start: 11-21-2023 End: 11-22-2023 Evaluation and management of inpatient DAVID FAJARDO [facility] Start: 11-20-2023 End: 11-20-2023 ambulatory [facility] Start: 10-02-2023 End: 10-02-2023 Evaluation and management of inpatient GÉNESIS JOHNSON [facility] Start: 10-02-2023 End: 10-02-2023 Evaluation and management of inpatient JE BISHOP [facility] Start: 10-01-2023 End: [facility] Start: 09-18-2023 End: 09-18-2023 Evaluation and management of inpatient RAY BUCKNER [facility] Start: 09-18-2023 End: 09-18-2023 Evaluation and management of inpatient JE BISHOP [facility] Start: 09-10-2023 End: 09-10-2023 ambulatory [facility] Start: 09-10-2023 Encounter for genera l adult medical examination without abnormal findings [facility] Start: 09-10-2023 End: 09-10-2023 ambulatory [facility] Start: 09-10-2023 Encounter for genera l adult medical examination without abnormal findings [facility] Start: 08-28-2023 End: 08-28-2023 ambulatory RAY BUCKNER [facility] Start: 08-28-2023 Encounter for other preprocedural examination JE BISHOP [facility] Start: 08-17-2023 End: 08-18-2023 ambulatory Jaime ALAMO Facility:[facility] Start: 08-17-2023 End: 08-17-2023 Patient encounter procedure Jaime ALAMO [facility] Start: 05-15-2023 Refdavid Estrada [facility] Internal Medicine - Family Medicine Start: 06-23-2022 End: 06-23-2022 Patient encounter procedure Jaime ALAMO [facility] Start: 06-14-2022 End: 06-15-[address] JAIME ALAMO . Facility: Start: 03-04-2022 End: 03-05-[address] BABATUNDE FOREMAN Facility:[facility] Start: 08-27-2021 End: 08-28-[address] BABATUNDE FOREMAN Facility: Procedures Date Procedure Procedure Detail Performing Clinician Start: 11-21-2023 Colonoscopy Babatunde benitez DO Work Phone: Start: 09-10-2023 Adult depression scr eening assessment Babatunde Foreman DO Work Phone: Start: 03-09-2023 Adult depression scr eening assessment Alyssa Estrada CMA Start: 06-14-[address] ANDRÉS ALAMO . Comment on above: Performed By: #### P SAD #### [facility] [address] [place] [address] Dr. Vivek Herrera Start: 12-16-2019 Cystoscopy Jaime WALKER Extraction of cataract Fabien ALAMO History of nasal sin us surgery Jaime ALAMO Tonsillectomy Jaime ALAMO Plan of Treatment Date Care Activity Detail Author Start: 09-03-2032 DTaP,Tdap and Td Vaccines (3 - Td or Tdap) DTaP,Tdap and Td Vaccines (3 - Td or Tdap) [facility] Start: 11-20-2028 Screening for malign ant neoplasm of colon [facility] Comment on above: Postponed from 06/25 (Not Indicated) Start: 03-12-2025 Adult BMI Screening Adult BMI Screen ing [facility] Start: 03-12-2025 Tobacco Screening Tobacco Screening [facility] Start: 11-20-2024 Adult BMI Screening Adult BMI Screen ing [facility] Start: 11-20-2024 Tobacco Screening Tobacco Screening [facility] Start: 09-10-2024 End: 09-10-2024 Patient encounter procedure 09/10/2024 10:00 AM EDT Office Visit [facility] [address] [place] [address] Babatunde Foreman DO [address], [place] [address] [facility] Start: 09-09-2024 Depression Screening Depression Scre [facility] Start: 03-12-2024 End: 03-12-2025 CT Chest for screening WO contrast CT low dose lung screening (Annual) Imaging Routine Cigarette smoker Expected: 03/12/2024, Expires: 03/12/2025 [facility] Comment on above: Expected: 03/12/2024 , Expires: 03/12/2025 Start: 03-12-2024 End: 03-12-2024 Patient encounter procedure 03/12/2024 9:30 AM EST Office Visit [facility] [address] [place] [address] Babatunde Foreman DO [address], [place] [address] [facility] Start: 03-09-2024 Adult BMI Follow Up Plan Adult BMI Follow Up Plan [facility] Start: 03-09-2024 Adult BMI Screening Adult BMI Screen ing [facility] Start: 03-09-2024 Depression Screening Depression Scre ening [facility] Start: 03-09-2024 Tobacco Screening Tobacco Screening [facility] Start: 12-23-2023 COVID-19 Vaccine ( season) COVID-19 Vaccine () [facility] Start: 09-10-2023 End: 09-10-2023 Patient encounter procedure 09/10/2023 10:00 AM EDT Office Visit [facility] [address] [place] [address] Babatunde Foreman, DO [address], [facility] [place] [address] [facility] Start: 2005 Screening for malign ant neoplasm of colon Colon Cancer Screening 5 Year Sigmoidoscopy [facility] Start: 1960 Tobacco Counseling Tobacco Counselin g [facility] End: 03-12-2025 Comprehensive metabolic 2000 panel - Serum or Plasma Comprehensive metabolic panel Lab Routine Essential hypertension Abnormal liver function 1 Occurrences starting 03/12/2024 until 03/12/2025 [facility] Work Phone: Comment on above: 1 Occurrences starti ng 03/12/2024 until 03/12/2025 End: 03-12-2025 TSH with Reflex TSH with Reflex Lab Routine Essential hypertension Class 2 severe obesity due to excess calories with serious comorbidity and body mass index (BMI) of 39.0 to 39.9 in adult ([facility]) 1 Occurrences starting 03/12/2024 until 03/12/2025 [facility] Comment on above: 1 Occurrences starti ng 03/12/2024 until 03/12/2025 Immunizations Immunization Date Immunization Notes Care Provider Fa cilighulam 01-21-2024 influenza, injectabl e, madin ruby canine kidney, preservative free Babatunde Furlong DO Work Phone: [facility] 02-22-2023 influenza virus vaccine, unspecified formulation Jaimelex ALAMO [facility] 02-22-2023 Influenza, injectabl e, Madin [place] Canine Kidney, preservative free, quadrivalent Babatunde Furlong DO Work Phone: [facility] 11-06-2022 zoster vaccine recombinant Jaime ALAMO [facility] 09-03-2022 tetanus toxoid, redu aden diphtheria toxoid, and acellular pertussis vaccine, adsorbed Jaime ALAMO [facility] 09-03-2022 zoster vaccine recombinant Jaime ALAMO [facility] 01-30-2022 Covid-19, Mrna, Lnp- s, Bivalent, Pf, 50mcg/0.5ml or 25mcg/0.25ml Alyssa Estrada [facility] 01-30-2022 influenza virus vaccine, unspecified formulation Jaimelex ALAMO [facility] 01-30-2022 Influenza, injectabl e, Madin [place] Canine Kidney, preservative free, quadrivalent Alyssa Estrada [facility] 12-15-2020 influenza virus vaccine, unspecified formulation Jaime ALAMO [facility] 12-15-2020 influenza, seasonal, injectable Alyssa Estrada [facility] 09-06-2020 COVID-19, mRNA, LNP- S, PF, 30mcg/0.3mL Dose Alyssa Estrada [facility] 08-31-2020 COVID-19, mRNA, LNP- S, PF, 30mcg/0.3mL Dose Alyssa Natalie [facility] 08-16-2020 COVID-19, mRNA, LNP- S, PF, 30mcg/0.3mL Dose Alysas Natalie [facility] 08-10-2020 COVID-19, mRNA, LNP- S, PF, 30mcg/0.3mL Dose Alyssa Natalie [facility] 04-23-2020 SARS-CoV-2 (COVID-19 ) mRNA [id number]-[id number] vax Jaime ALAMO [facility] Comment on above: Result Comment: Pt h as had shots to date 02-11-2020 influenza virus vaccine, unspecified formulation Jaime ALAMO [facility] 02-11-2020 influenza, seasonal, injectable, preservative free Alyssa Natalie [facility] 01-01-2020 influenza virus vaccine, unspecified formulation Jaime ALAMO [facility] 01-01-2020 influenza, injectabl e, quadrivalent, preservative free Alyssa Natalie [facility] 01-08-2019 influenza virus vaccine, unspecified formulation Jaime ALAMO [facility] 01-08-2019 Influenza, injectabl e, Madin [place] Canine Kidney, preservative free, quadrivalent Alyssa Natalie [facility] 02-13-2018 influenza virus vaccine, unspecified formulation Jaime ALAMO [facility] 02-13-2018 influenza, injectabl e, quadrivalent, preservative free Alyssa Natalie [facility] 02-08-2017 influenza virus vaccine, unspecified formulation Jaime LAAMO [facility] 02-08-2017 Influenza, injectabl e, Madin [place] Canine Kidney, preservative free, quadrivalent Alyssalorenza Alexanderett [facility] 01-30-2017 influenza virus vaccine, unspecified formulation Alyssa Natalie [facility] 01-30-2017 Influenza, High-dose , Quadrivalent Babatunde Foreman DO Work Phone: [facility] 01-30-2017 influenza, unspecifi ed formulation Jaime ALAMO [facility] 03-01-2016 influenza virus vaccine, unspecified formulation Jaime ALAMO [facility] 03-01-2016 influenza, seasonal, injectable, preservative free Alyssa Alexanderett [facility] 04-12-2015 influenza virus vaccine, unspecified formulation Jaime ALAMO [facility] 04-12-2015 influenza, seasonal, injectable Alyssa Alexanderett [facility] 02-26-2015 tetanus toxoid, redu aden diphtheria toxoid, and acellular pertussis vaccine, adsorbed Alyssa Estrada [facility] 02-18-2015 influenza virus vaccine, unspecified formulation Jaime ALAMO [facility] 02-18-2015 influenza, seasonal, injectable, preservative free Alyssa Alexanderett [facility] 03-24-2014 influenza virus vaccine, unspecified formulation Jaime ALAMO [facility] 03-24-2014 influenza, seasonal, injectable Alyssa Natalie [facility] 03-24-2014 zoster vaccine, live Alyssa Alexanderett [facility] 03-19-2013 influenza virus vaccine, unspecified formulation Jaime ALAMO [facility] 03-19-2013 influenza, seasonal, injectable Alyssa Natalie [facility] Payers Date Payer Category Payer Managed Care Other (unspecified) [employer] [id number] 2022 Private Health Insurance [facility] [employer] [id number] 2022-Present [phone] [address] [address] [place] [address] [id number] 1960 Unknown [id number] 2.16.840.1.103270.3.579. 2.593 1960 Unknown [id number] 2.16.840.1.272984.3.579. 2.593 1960 Unknown [id number] 2.16.840.1.672511.3.579. 2.593 1960 Unknown [id number] 2.16.840.1.189526.3.579. 2.727 1960 Unknown [id number] 2.16.840.1.641592.3.579. 2.727 1960 Unknown [id number] 2.16.840.1.727654.3.579. 2.1286 1960 Unknown [id number] 2.16.840.1.987693.3.579. 2.1286 1960 Unknown [id number] 2.16.840.1.951779.3.579. 2.1286 1960 Unknown [id number] 2.16.840.1.023670.3.579. 2.1286 1960 Unknown [id number] 2.16.840.1.958724.3.579. 2.1285 1960 Unknown [id number] 2.16.840.1.818421.3.579. 2.1285 1960 Unknown [id number] 2.16.840.1.721584.3.579. 2.1285 1960 Unknown [id number] 2.16.840.1.744217.3.579. 2.1285 1960 Unknown [id number] 2.16.840.1.039277.3.579. 2.1285 1960 Unknown [id number] 2.16.840.1.521645.3.579. 2.1285 1960 Unknown [id number] 2.16.840.1.590908.3.579. 2.128 1960 Unknown [id number] 2.16.840.1.529720.3.579. 2.1285 1960 Unknown [id number] 2.16.840.1.466400.3.579. 2.6 1960 Unknown [id number] 2.16.840.1.119817.3.579. 2.1285 1960 Unknown [id number] 2.16.840.1.473825.3.579. 2.1285 1960 Unknown [id number] 2.16.840.1.732605.3.579. 2.6 1959 Unknown [id number] 1959 Unknown [id number] Social History Date Type Detail Facility Start: 06-18-2020 End: 08-17-2023 Tobacco smoking status Light tobacco smoker (finding) [facility] Start: 02-26-2022 End: 03-09-2023 Sex Assigned At Male [facility] Start: 03-09-2023 End: 08-28-2023 Tobacco smoking status NHIS Smokes tobacco daily [facility] Start: 03-12-1981 History of tobacco use Cigarette Smo ker [facility] Start: 02-26-2022 End: 03-09-2023 Cigarettes smoked current (pack per day) - Reported 0.3 [facility] Start: 03-09-2023 End: 03-12-2024 Tobacco use and exposure Smokeless tobacco non-user [facility] Start: 03-09-2023 End: 03-12-2024 Alcohol intake Current drinker of alcohol (finding) [facility] Has the [employer], or [employer] threatened to shut off services in your home in past 12Mo No [facility] Are you now , , , , never or living with a partner? [facility] How often to you hav e a drink containing alcohol? Monthly or less [facility] How many standard drinks containing alcohol do you have on a typical day? 1 or 2 [facility] How often do you hav e 6 or more drinks on 1 occasion? Never [facility] How hard is it for y ou to pay for the very basics like food, housing, medical care, and heating Not hard at all [facility] Do you feel stress - tense, restless, nervous, or anxious, or unable to sleep at night because your mind is troubled all the time - these days [OSQ] Not at all [facility] Start: 02-26-2022 Education 15 [facility] Start: 03-09-2023 Tobacco Comment He did smoke a pack for 20+ years [facility] Start: 08-15-2021 Alcohol Comment social [facility] Start: 1960 Sex Assigned At Male [facility] Start: 08-16-2021 Gender identity Identifies as male gender (finding) [facility] Start: 08-16-2021 Sexual orientation Heterosexual (fin bibi) [facility] Start: 02-26-2015 Sex Male (finding) [facility] Start: 03-12-1981 Tobacco smoking stat us NHIS Occasional tobacco smoker [facility] Medical Equipment Procedure Code Equipment Code Equipment Origin al Text Equipment Identifier Dates Lens Iol Panop [id number] 9.5d - [id number] - [id number] Start: 08-16-2021 Acrysof Iq Panop tic Toric [id number] Start: 10-02-2023 Functional Status Date Assessment Result Facility 08-17-2023 Functional Status N/A [facility] 06-23-2022 Functional Status N/A [facility] Clinical Notes 06-23-2022 to 03-12-2024 Babatunde Farrisecho, DO - 03/12/2024 9:30 AM EST Note Date & Type Note Facility 03-12-2024 History of Present illness Narrative Subjective Patient ID: Sandip Pires is a 63 y.o. male. Lex presents today for CV recheck. He is doing fairly well overall. He has been having some aches and pains in his back and knees but otherwise has been doing well. He is still working. He takes ibuprofen when it bothers him. The following portions of the patient's history were reviewed and updated as appropriate: allergies, current medications, past family history, past medical history, past social history, past surgical history, problem list, and medication reconciliation was completed including current medication and post discharge medication. Review of Systems Constitutional: Negative. Respiratory: Negative. Cardiovascular: Negative. Gastrointestinal: Negative. Musculoskeletal: Positive for arthralgias and back pain. Neurological: Negative. Psychiatric/Behavioral: Negative. Objective Physical Exam Vitals reviewed. Exam conducted with a manual lathe operator present (Alfonso Robles MS III). Constitutional: General: He is not in acute distress. Appearance: He is well-groomed. He is obese. HENT: Head: Normocephalic. Left Ear: Ear canal normal. Eyes: Extraocular Movements: Extraocular movements intact. Conjunctiva/sclera: Conjunctivae normal. Neck: Vascular: No carotid bruit. Cardiovascular: Rate and Rhythm: Normal rate and regular rhythm. Pulses: Normal pulses. Heart sounds: Normal heart sounds. No murmur heard. Pulmonary: Effort: Pulmonary effort is normal. No respiratory distress. Breath sounds: Normal breath sounds. No wheezing, rhonchi or rales. Abdominal: General: Bowel sounds are normal. Palpations: Abdomen is soft. Tenderness: There is no abdominal tenderness. Genitourinary: Comments: Done by urology Musculoskeletal: Cervical back: Neck supple. Lymphadenopathy: Cervical: No cervical adenopathy. Neurological: General: No focal deficit present. Mental Status: He is alert and oriented to person, place, and time. Gait: Gait normal. Psychiatric: Attention and Perception: Attention normal. Mood and Affect: Mood normal. Speech: Speech normal. Behavior: Behavior normal. Behavior is cooperative. Thought Content: Thought content normal. Cognition and Memory: Cognition and memory normal. Judgment: Judgment normal. Assessment/Plan Sandip was seen today for hypertension and hyperlipidemia. Diagnoses and all orders for this visit: Essential hypertension - Comprehensive metabolic panel; Future - TSH with Reflex; Future Blood pressure at goal. Check CMP and TSH. Continue current regimen. Abnormal liver function - Comprehensive metabolic panel; Future Check LFTs. Cigarette smoker - Cancel: CT low dose lung screening (Annual); Future - CT low dose lung screening (Annual); Future He is due for a low-dose CT scan to screen for lung cancer. He would pursue further evaluation and treatment. He is not having any symptoms. Risks and benefits discussed. He agrees to the test Venous stasis syndrome Doing well on current regimen Class 2 severe obesity due to excess calories with serious comorbidity and body mass index (BMI) of 39.0 to 39.9 in adult ([facility]) - TSH with Reflex; Future He is obese. He would benefit from weight loss. It is contributing to hypertension and high cholesterol. Diet exercise and weight loss discussed and encouraged. It does not work out on an exercise bike. documented in this encounter [facility] 08-17-2023 Hospital Discharge instructions Patient Education 08/17/2023 11:01:57 Benign Prostatic Hyperplasia Benign Prostatic Hyperplasia Benign prostatic hyperplasia (BPH) is an enlarged prostate gland that is caused by the normal aging process. The prostate may get bigger as a man gets older. The condition is not caused by cancer. The prostate is a walnut-sized gland that is involved in the production of semen. It is located in front of the rectum and below the bladder. The bladder stores urine. The urethra carries stored urine out of the body. An enlarged prostate can press on the urethra. This can make it harder to pass urine. The buildup of urine in the bladder can cause infection. Back pressure and infection may progress to bladder damage and kidney (renal) failure. What are the causes? This condition is part of the normal aging process. However, not all men develop problems from this condition. If the prostate enlarges away from the urethra, urine flow will not be blocked. If it enlarges toward the urethra and compresses it, there will be problems passing urine. What increases the risk? This condition is more likely to develop in men older than 50 years. What are the signs or [...] urethra. Follow these instructions at home: Take [id number] and prescription medicines only as told by your health care provider. Monitor your symptoms for any changes. Contact your health care provider with any changes. Avoid drinking large amounts of liquid before going to bed or out in public. Avoid or reduce how much caffeine or alcohol you drink. Give yourself time when you urinate. Keep all follow-up visits. This is important. Contact a health care provider if: You have unexplained back pain. Your symptoms do not get better with treatment. You develop side effects from the medicine you are taking. Your urine becomes very dark or has a bad smell. Your lower abdomen becomes distended and you have trouble passing urine. Get help right away if: You have a fever or chills. You suddenly cannot urinate. You feel light-headed or very dizzy, or you faint. There are large amounts of blood or clots in your urine. Your urinary problems become hard to manage. You develop moderate to severe low back or flank pain. The flank is the side of your body between the ribs and the hip. These symptoms may be an emergency. Get help right away. Call 911. Do not wait to see if the symptoms will go away. Do not drive yourself to the hospital. Summary Benign prostatic hyperplasia (BPH) is an enlarged prostate that is caused by the normal aging process. It is not caused by cancer. An enlarged prostate can press on the urethra. This can make it hard to pass urine. This condition is more likely to develop in men older than 50 years. Get help right away if you suddenly cannot urinate. This information is not intended to replace advice given to you by your health care provider. Make sure you discuss any questions you have with your health care provider. Document Revised: 10/26/2021 Document Reviewed: 10/26/2021 [employer]Limit[employer] Patient Education 2022 Mingly. Follow Up Care 06/23/2022 10:57:28 With:FEDERICA DOMINGUEZ, Jaime Sher, URL Address: [address] [place], [place] [id number]- When: Unknown [facility] 06-23-2022 Hospital Discharge instructions Patient Education 06/23/2022 [...] urethra. Follow these instructions at home: Take [id number] and prescription medicines only as told by [...] 04/09/2006 Document Revised: 03/04/2019 Document Reviewed: 05/14/2017 [employer] Patient Education 2020 Mingly. Follow Up Care 06/20/2021 10:48:14 With:FEDERICA DOMINGUEZ, Jaime Sher, URL Address: [address] [place] [address]- When: Unknown [facility] Evaluation + Plan note Future Appointments Appointment Date:06/29/2023 09:30:00 AM Scheduled Provider:Jaime ALAMO MD Location:[facility] Appointment Type:URO Office Visit Diagnostic Tests PendingPSA Total 05/24/23 [facility] Evaluation + Plan note Future Appointments Appointment Date:08/08/2024 09:45:00 AM Scheduled Provider:Jaime ALAMO MD Location:[facility] Appointment Type:URO Office Visit Diagnostic Tests PendingPSA Total 05/24/24 [facility] Evaluation note Diagnosis Essential hypertension- Primary Unspecified essential hypertension Abnormal liver function Unspecified disorder of liver Cigarette smoker Tobacco use disorder Venous stasis syndrome Unspecified venous (peripheral) insufficiency Class 2 severe obesity due to excess calories with serious comorbidity and body mass index (BMI) of 39.0 to 39.9 in adult ([facility]) [facility] N[facility] No data available for this section [facility] InstructionsNot on filedocumented in this encounter [facility] on filedocumented in this encounter [facility]ructions[facility] on filedocumented in this encounter [facility] No data available for this section [facility] Summary Purpose Family History No Family History Records FoundNo Family History Records Found No data available for this section No Family History Records FoundNo Family History Records FoundNo Family History Records FoundNo Family History Records Found Advance Directives No Advanced Directives Records FoundNo Advanced Directives Records FoundNo Advanced Directives Records FoundNo Advanced Directives Records FoundNo Advanced Directives Records FoundNo Advanced Directives Records Found Additional Source Comments (unrecognized sect ion and content) No Status Records FoundNo Status Records FoundNo Status Records FoundNo Status Records FoundNo Status Records FoundNo Status Records Found INFORMATION SOURCE (unrecogn ized section and content) DATE CREATED AUTHOR 08/22/2021 [facility] DATE CREATED AUTHOR AUTHOR'S ORGANIZ ATION 06/18/2022 [facility] DATE CREATED AUTHOR AUTHOR'S ORGANIZ ATION 08/28/2023 [place] DATE CREATED AUTHOR AUTHOR'S ORGANIZ ATION 11/26/2023 [facility] DATE CREATED AUTHOR AUTHOR'S ORGANIZ ATION 03/14/2024 [facility] DATE CREATED AUTHOR AUTHOR'S ORGANIZ ATION 03/15/2024 [facility] Patient Care team informatio n (unrecognized section and content) 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 Specialty Start Date End Date Babatunde Foreman DO [address], [place] [address] PCP - General Family Medicine 08/11/21 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 [facility]. provides no warranty or guarantee of the accuracy or completeness of information in this document.
== END 2024-04-04 08:24 | disposition home or self-care (01) ==
LOC: CT 08:24
PROVIDERS: PCP Family Medicine; Visit Provider Family Medicine
DX: F17.210 Nicotine dependence, cigarettes, uncomplicated (principal)
CPT/HCPCS: 71271

== ENCOUNTER 2024-10-17 10:24 | Outpatient (OUT) | payer OTHER, SELFPAY ==
--- OUTSIDE RECORDS SUMMARY | 2024-10-07 10:00 | XMS_ITS | Encounter Summary ---
Author Organization [employer] Address [id number] [place] [address] Care Team Providers Care Well Testing Operator Name Role Phone Kellen Babatunde Florez DO Primary Care Provider Encounter Details Date Type Department Care Team (Late st Contact Info) Description 10/07/2024 10:00 AM EDT Clinical Support [facility] [address] [place] [phone] Babatunde Foreman DO [address] [facility] [place], [place] [id number] Abnormal glucose (Primary Dx) Social History Tobacco Use Types Packs/Day Years Used Date Smoking Tobacco: Some Days Cigarettes 0.6 43.6 Started: 03/12/1981 Smokeless Tobacco: Never Alcohol Use Standard Drinks/Week Comments Yes 0 (1 standard drink = 0.6 oz pur e alcohol) social C Utilities Answer Date Recorded In the past 12 months has [employer], gas, oil, or water [employer] threatened to shut off services in your home? No 03/09/2023 Social Connection and Isolat ion Panel [NHANES] Answer Date Recorded In a typical week, how many times do you talk on the phone with family, friends, or neighbors? More than three times a week 08/30/2022 How often do you get togethe r with friends or relatives? Once a week 08/30/2022 How often do you attend chur ch or yazidism services? Never 08/30/2022 Do you belong to any clubs o r organizations such as pentecostal groups, unions, fraternal or athletic groups, or school groups? No 08/30/2022 How often do you attend meet ings of the clubs or organizations you belong to? Never 08/30/2022 Are you , , di vorced, , never , or living with a partner? 08/30/2022 AUDIT-C Answer Date Recorded Q1: How often do you have a drink containing alc ohol? Monthly or less 02/26/2022 Q2: How many drinks containi ng alcohol do you have on a typical day when you are drinking? 1 or 2 02/26/2022 Q3: How often do you have si x or more drinks on one occasion? Never 02/26/2022 Overall Financial Resource Strain (CARDIA) Answe r Date Recorded How hard is it for you to pa y for the very basics like food, housing, medical care, and heating? Somewhat hard 09/09/2024 PHQ-2 Answer Date Recorded Total Score 0 09/10/2024 [facility] of Occupat ional Health - Occupational Stress Questionnaire Answer Date Recorded Do you feel stress - tense, restless, nervous, or anxious, or unable to sleep at night because your mind is troubled all the time - these days? Not at all 02/26/2022 Exercise Vital Sign Answer Date Recorde d On average, how many days pe r week do you engage in moderate to strenuous exercise (like a brisk walk)? 4 days 08/30/2022 On average, how many minutes do you engage in exercise at this level? 40 min 08/30/2022 PRAPARE - Transportation Answer Date Re corded In the past 12 months, has l ack of transportation kept you from medical appointments or from getting medications? No 08/22 In the past 12 months, has l ack of transportation kept you from meetings, work, or from getting things needed for daily living? No 09/09/2024 Housing Instability Answer Date Recorde d Are you worried or concerned that in the next two months you may not have stable housing that you own, rent or stay in as a part of a household? No 09/09/2024 Childcare Answer Date Recorded Do problems getting child ca re make it difficult for you to work or study? No 02/26/2022 Employment Answer Date Recorded Do you need help finding a [facility] career center and/or a training program? No 02/26/2022 Hunger Screening Answer Date Recorded Within the past 12 months we worried whether our food would run out before we got money to buy more. Never True 09/10/2024 Within the past 12 months th e food we bought just didn't last and we didn't have money to get more. Never True 09/10/2024 Purpose - Life Answer Date Recorded I have a purpose and direction in my life. Stron gly Agree 02/26/2022 Education Answer Date Recorded What is the highest level of school you have completed or the highest degree you have received? Associate degree: occupational, technical, or vocational program 02/26/2022 Sex and Gender Information Value Date Recorded Sex Assigned at Male 08/16/2021 11:31 PM EDT Legal Sex Male 5:03 PM EST Gender Identity Male 08/16/2021 11:31 PM EDT Sexual Orientation Straight 08/16/2021 11 :31 PM EDT documented as of this encounter Progress Notes * Babatunde Foreman DO - 10/07/2024 10:00 AM EDT A1c check documented in this encounter Plan of Treatment Upcoming Encounters Date Type Department Care Team (Late st Contact Info) Description 03/13/2025 10:45 AM EST Office Visit [facility] [address] [place] [phone] Babatunde Foreman DO [address], [place] [address] documented as of this encounter Procedures Procedure Name Priority Date/Time Associated Diagnosis Comments POCT HEMOGLOBIN A1C Routine 10/07/2024 1 0:23 AM EDT Abnormal glucose documented in this encounter Results * POCT Hemoglobin A1c (10/07/2024 10:23 AM EDT) External Poct Hgb A1C 5.9 4 - 7 % MANUALLY TRANSCRIBED RESULTS Blood 10/07/2024 10:2 3 AM EDT us Babatunde Foreman DO POINT OF CARE TEST ORDERABLE S Final Result MANUALLY TRANSCRIBED RESULTS documented in this encounter Visit Diagnoses Diagnosis Abnormal glucose- Primary documented in this encounter Additional Health Concerns Assessment Noted Time PHQ-9 Depression Total Score: 0 09/11/19 25 10:05 AM EDT A Body Mass Index follow-up plan has been documented for the patient 09/10/2024 1:51 PM EDT documented as of this encounter Care Teams Well Testing Operator Relationship Specialty Start Date End Date Babatunde Foreman DO [address] [facility], [place] [address] PCP - General Family Medicine 08/11/21 documented as of this encounter
--- OUTSIDE RECORDS SUMMARY | 2024-10-17 10:28 | XMS_ITS | Encounter Summary ---
Author Organization [employer] Address [id number] [place] [address] Care Team Providers Care Check Airman Name Role Phone Babatunde Foreman Primary Care Provider Encounter Details Date Type Department Care Team (Latest Contact Info) Description 10/07/2024 Travel Social History Tobacco Use Types Packs/Day Years Used Date Smoking Tobacco: Some Days Cigarettes 0.6 43.6 Started: 03/12/1981 Smokeless Tobacco: Never Alcohol Use Standard Drinks/Week Comments Yes 0 (1 standard drink = 0.6 oz pur e alcohol) social AHC Utilities Answer Date Recorded In the past 12 months has [employer], [employer], oil, or water [employer] threatened to shut off services in your [...] often do you attend chur ch or muslim services? Never 08/30/2022 Do you belong to any clubs o r organizations such as bahai groups, unions, fraternal or athletic groups, or [...] Answer Date Recorded Total Score 0 09/10/2024 [facility] - Occupational Stress Questionnaire Answer Date Recorded [...] Recorded Do you need help finding a [facility] career center and/or a training program? No [...] PM EDT documented as of this encounter Plan of Treatment Upcoming Encounters Date Type Department Care Team (Late st Contact Info) Description 03/13/2025 10:45 AM EST Office Visit [facility] [address] [place] [address] Babatunde Foreman DO [address] [place] [address] documented as of this encounter Visit Diagnoses Not on filedocumented in this encounter Additional Health Concerns Assessment Noted Time PHQ-9 Depression Total Score: 0 09/11/19 25 10:05 AM EDT A Body Mass Index follow-up plan has been documented for the patient 09/10/2024 1:51 PM EDT documented as of this encounter Care Teams Check Airman Relationship Specialty Start Date End Date Babatunde Foreman DO [address] [place] [address] PCP - General Family Medicine 08/11/21 documented as of this encounter
--- OUTSIDE RECORDS SUMMARY | 2024-10-17 10:28 | XMS_ITS | Encounter Summary ---
Author Organization [facility] Address [id number] [place] [address] Care Team Providers Care Supervisor Film Processing Name Role Phone Babatunde Foreman Primary Care Provider Encounter Details Date Type Department Care Team (Late st Contact Info) Description 04/08/2024 Orders Only [facility] [address] [facility] [address] Regina Freedman CMA Cigarette smoker Social History Tobacco Use Types Packs/Day Years Used Date Smoking Tobacco: Some Days Cigarettes 0.6 43.6 Started: 03/12/1981 Smokeless Tobacco: Never Alcohol Use Standard Drinks/Week Comments Yes 0 (1 standard drink = 0.6 oz pur e alcohol) social AHC Utilities Answer Date Recorded In the past 12 months has [employer], gas, oil, or water company threatened to shut off services in your [...] often do you attend chur ch or protestant services? Never 08/30/2022 Do you belong to any clubs o r organizations such as yazidism groups, unions, fraternal or athletic groups, or [...] like food, housing, medical care, and heating? Not hard at all 08/30/2022 PHQ-2 Answer Date Recorded Total Score 0 09/10/2023 [facility] of Occupat ional Health - Occupational Stress [...] medical appointments or from getting medications? No 09/2021 In the past 12 months, has l ack of transportation kept you from meetings, work, or from getting things needed for daily living? No 02/26/2022 Housing Instability Answer Date Recorde d Are you worried or concerned that in the next two months you may not have stable housing that you own, rent or stay in as a part of a household? No 03/12/2024 Childcare Answer Date Recorded Do problems getting child ca re make it difficult for you to work or study? No 02/26/2022 Employment Answer Date Recorded Do you need help finding a [facility] career center and/or a training program? No 02/26/2022 Hunger Screening Answer Date Recorded Within the past 12 months we worried whether our food would run out before we got money to buy more. Never True 09/10/2023 Within the past 12 months th e food we bought just didn't last and we didn't have money to get more. Never True 09/10/2023 Purpose - Life Answer Date Recorded I [...] - Family Medicine [address] [place] [address] Babatunde Foreman DO [address], [facility] [place] [address] documented as of this encounter Procedures Procedure Name Priority Date/Time Associated Diagnosis Comments CT LOW DOSE LUNG SCREENING Routine 04/04/2024 Cigarette smoker documented in this encounter Results * CT low dose lung screening (Annual) (04/04/2024) Anatomical Region Laterality Modality Body, Lung, Chest, Body Covera C omputed Tomography 04/04/2024 us Babatunde Foreman DO IMG CT ORDERABLES Final Resu lt documented in this encounter Visit Diagnoses Diagnosis Cigarette smoker Tobacco use disorder documented in this encounter Additional Health Concerns Assessment Noted Time PHQ-9 Depression Total Score: 0 09/10/19 9:56 AM EDT A Body Mass Index follow-up plan has been documented for the patient 03/09/2023 2:01 PM EST documented as of this encounter Care Teams Supervisor Film Processing Relationship Specialty Start Date End Date Babatunde Foreman DO [address] [facility], [place] [address] PCP - General Family Medicine 08/11/21 documented as of this encounter
--- OUTSIDE RECORDS SUMMARY | 2024-10-17 10:28 | XMS_ITS | Encounter Summary ---
Author Organization [facility] Address [id number] [address] [place] [address] Care Team Providers Care Print Washer Name Role Phone Babatunde Foreman Primary Care Provider [phone] Encounter Details Date Type Department Care Team (Late st Contact Info) Description 12/07/2023 Orders Only [facility] External, Scanning Provider Social History Tobacco Use Types Packs/Day Years Used Date Smoking Tobacco: Every Day Cigarettes 0.3 50 Smokeless Tobacco: Never Alcohol Use Standard Drinks/Week Comments Yes 0 (1 standard drink = 0.6 oz pur e alcohol) social AHC Utilities Answer Date Recorded In the past 12 months has [employer], [employer], oil, or water [employer] threatened to shut off services in your [...] often do you attend chur ch or yarsani services? Never 08/30/2022 Do you belong to any clubs o r organizations such as samaritan groups, unions, fraternal or athletic groups, or [...] Answer Date Recorded Total Score 0 09/10/2023 [facility] of Occupat ional [facility] - Occupational Stress Questionnaire Answer Date Recorded [...] things needed for daily living? No 02/26/2022 Childcare Answer Date Recorded Do problems getting child ca re make it difficult for you to work or study? No 02/26/2022 Employment Answer Date Recorded Do you need help finding a l ocal career center and/or a training program? No [...] purpose and direction in my life. Stron emilee Agree 02/26/2022 Education Answer Date Recorded What [...] - Family Medicine [address] [place] [address] Babatunde Foreman DO [address] [facility] [place] [address] documented as of this encounter Procedures Procedure Name Priority Date/Time Associated Diagnosis Comments HM COLONOSCOPY Routine 11/21/2023 documented in this encounter Results * HM COLONOSCOPY (11/21/2023) 11/21/2023 us Scanning Provider External HEALTH MAINTENANCE nal Result documented in this encounter Visit Diagnoses Not on filedocumented in this encounter Additional Health Concerns Assessment Noted Time PHQ-9 Depression Total Score: 0 09/10/19 24 9:56 AM EDT A Body Mass Index follow-up plan has been documented for the patient 03/09/2023 2:01 PM EST documented as of this encounter Care Teams Print Washer Relationship Specialty Start Date End Date Babatunde Foreman DO [address] [facility] [place] [address] PCP - General Family Medicine 08/11/21 documented as of this encounter
--- OUTSIDE RECORDS SUMMARY | 2024-10-17 10:28 | XMS_ITS | Encounter Summary ---
Author [facility] Address [id number] [address] [place] [address] Care Team Providers Care Production Metal Sprayer Name Role Phone Babatunde Foreman DO Primary Care Provider Encounter Details Date Type Department Care Team (Late st Contact Info) Description 04/03/2023 Orders Only [facility] - Family Medicine [address] [place] [phone] Babatunde Foreman DO [address] [place] [address] Cigarette smoker Social History Tobacco Use Types Packs/Day Years Used Date Smoking Tobacco: Every Day Cigarettes 0.3 50 Smokeless Tobacco: Never Comments:He did smoke a pack for 20+ years Alcohol Use Standard Drinks/Week Comments Yes 0 (1 standard drink = 0.6 oz pur e alcohol) social AHC Utilities Answer Date Recorded In the past 12 months has e [employer], gas, oil, or water company threatened to [...] often do you attend chur ch or restorationist services? Never 08/30/2022 Do you belong to any clubs o r organizations such as caodaism groups, unions, fraternal or athletic groups, or [...] PHQ-2 Answer Date Recorded Total Score 0 03/09/2023 [facility] of Occupat ional Health - [...] Recorded Do you need help finding a [facility] career center and/or a training program? No 02/26/2022 Hunger Screening Answer Date Recorded Within the past 12 months we worried whether our food would run out before we got money to buy more. Never True 03/09/2023 Within the past 12 months th e food we bought just didn't last and we didn't have money to get more. Never True 03/09/2023 Purpose - Life Answer Date Recorded I [...] Medicine - Family Medicine [address] [place] [address] Babatunde Foreman DO [address] [facility] [place] [address] documented as of this encounter Procedures Procedure Name Priority Date/Time Associated Diagnosis Comments CT LOW DOSE LUNG SCREENING Routine 03/31/2023 Cigarette smoker documented in this encounter Results * CT low dose lung screening (Annual) (03/31/2023) Anatomical Region Laterality Modality Body, Lung, Chest, Body Covera C omputed Tomography us Babatunde Foreman DO IMG CT ORDERABLES Final Resu lt documented in this encounter Visit Diagnoses Diagnosis Cigarette smoker Tobacco use disorder documented in this encounter Additional Health Concerns Assessment Noted Time PHQ-9 Depression Total Score: 0 03/09/20 23 10:00 AM EST A Body Mass Index follow-up plan has been documented for the patient 03/09/2023 2:01 PM EST documented as of this encounter Care Teams Production Metal Sprayer Relationship Specialty Start Date End Date Babatunde Foreman DO [address] [facility], [place] [address] PCP - General Family Medicine 08/11/21 documented as of this encounter
--- OUTSIDE RECORDS SUMMARY | 2024-10-17 10:28 | XMS_ITS | Encounter Summary ---
Author Organization [employer] Address [id number] [place] [address] Care Team Providers Care Contact Lens Inspector Name Role Phone Babatunde Foreman DO Primary Care Provider Reason for Visit * Reason Comments Med Refill Encounter Details Date Type Department Care Team (Late st Contact Info) Description 10/17/2024 Refill [facility] - Family Medicine [address] [place] [phone] Babatunde Foreman DO [address] [place], [place] [phone] Social History Tobacco Use Types Packs/Day Years Used Date Smoking Tobacco: Some Days Cigarettes 0.6 43.6 Started: 03/12/1981 Smokeless Tobacco: Never Alcohol Use Standard Drinks/Week Comments Yes 0 (1 standard drink = 0.6 oz pur e alcohol) social C Utilities Answer Date Recorded In the past 12 months has [employer], gas, oil, or water company threatened to [...] often do you attend chur ch or jew services? Never 08/30/2022 Do you belong to any clubs o r organizations such as hinduism groups, unions, fraternal or athletic groups, or [...] Answer Date Recorded Total Score 0 09/10/2024 [facility] of Occupat ional Health - Occupational Stress [...] Recorded Do you need help finding a [facility] career center and/or a training program? [...] Medicine - Family Medicine [address] [place] [address] Babatunde Foreman DO [address] [place] [place] [address] documented as of this encounter Visit Diagnoses Not on filedocumented in this encounter Additional Health Concerns Assessment Noted Time PHQ-9 Depression Total Score: 0 09/11/19 25 10:05 AM EDT A Body Mass Index follow-up plan has been documented for the patient 09/10/2024 1:51 PM EDT documented as of this encounter Care Teams Contact Lens Inspector Relationship Specialty Start Date End Date Babatunde Foreman DO [address] [place] [address] PCP - General Family Medicine 08/11/21 documented as of this encounter
--- OUTSIDE RECORDS SUMMARY | 2024-10-17 10:28 | XMS_ITS | Encounter Summary ---
[facility] Organization [facility] Address [id number] [address] [place] [address] Care Team Providers Care Chief Station Engineer Name Role Phone Babatunde Foreman Primary Care Provider Encounter Details Date Type Department Care Team (Late st Contact Info) Description 08/30/2022 Orders Only [facility] - Family Medicine [address] [facility] [address] External, Scanning Provider Social History Tobacco Use Types Packs/Day Years Used Date Smoking Tobacco: Former Cigarettes 0.3 50 Smokeless Tobacco: Never Alcohol Use Standard Drinks/Week Comments Yes 0 (1 standard drink = 0.6 oz pur e alcohol) social Social Connection and Isolat ion Panel [NHANES] Answer Date Recorded In a typical week, how many times do you talk on the phone with family, friends, or neighbors? More than three times a week 08/30/2022 How often do you get togethe r with friends or relatives? Once a week 08/30/2022 How often do you attend chur ch or yazdanism services? Never 08/30/2022 Do you belong to any clubs o r organizations such as lutheran groups, unions, fraternal or athletic groups, or [...] PHQ-2 Answer Date Recorded Total Score 0 08/30/2022 [facility] of Occupat ional Health - Occupational Stress [...] center and/or a training program? No 02/26/2022 Purpose - Life Answer Date Recorded I [...] - Family Medicine [address] [place] [address] Babatunde Foreman DO [address], [place] [address] documented as of this encounter Procedures Procedure Name Priority Date/Time Associated Diagnosis Comments HM COLONOSCOPY Routine 03/26/2020 HEPATITIS C(HCV) ANTIBODY W/ REFLEX TO PCR Routine 10/14/2015 documented in this encounter Results * HM COLONOSCOPY (03/26/2020) us Conner Wilhelm DO HEALTH MAINTENANCE Final Result Performing Organization Address City/[facility]/ZIP Co de Phone Number MANUALLY TRANSCRIBED RESULTS * Hepatitis C(HCV) Ab w/ Reflex to PCR (10/14/2015) us Scanning Provider External LAB BLOOD ORDERABLES Final Result MANUALLY TRANSCRIBED LAB RESULTS documented in this encounter Visit Diagnoses Not on filedocumented in this encounter Additional Health Concerns Assessment Noted Time PHQ-9 Depression Total Score: 0 08/31/19 10:28 AM EDT documented as of this encounter Care Teams Chief Station Engineer Relationship Specialty Start Date End Date Babatunde Foreman DO [address], [place] [address] PCP - General Family Medicine 08/11/21 documented as of this encounter
--- OUTSIDE RECORDS SUMMARY | 2024-10-17 10:28 | XMS_ITS | Encounter Summary ---
Author Organization [employer] Address [id number] [address] [place] [address] Care Team Providers Care Excavating Supervisor Name Role Phone Babatunde Foreman Primary Care Provider Encounter Details Date Type Department Care Team (Late st Contact Info) Description 06/16/2022 Orders Only [facility] - Family Medicine [address] [place] [address] External, Scanning Provider Social History Tobacco Use Types Packs/Day Years Used Date Smoking Tobacco: Every Day Cigarettes 0.3 50 Smokeless Tobacco: Never Alcohol Use Standard Drinks/Week Comments Yes 0 (1 standard drink = 0.6 oz pur e alcohol) social Social Connection and Isolation Panel [NHANES] A nswer Date Recorded In a typical week, how many times do you talk on the phone with family, friends, or neighbors? Once a week 02/26/2022 How often do you get togethe r with friends or relatives? Patient declined 02/26/2022 How often do you attend caodaism or hoahaoism serv ices? Patient declined 02/26/2022 Do you belong to any clubs o r organizations such as caodaism groups, unions, fraternal or athletic groups, or school groups? No 02/26/2022 How often do you attend meet ings of the clubs or organizations you belong to? Patient declined 02/26/2022 Are you , , di vorced, , never , or living with a partner? 02/26/2022 AUDIT-C Answer Date Recorded Q1: How often do you have a drink containing alc ohol? Monthly or less 02/26/2022 Q2: How many drinks containi ng alcohol do you have on a typical day when you are drinking? 1 or 2 02/26/2022 Q3: How often do you have si x or more drinks on one occasion? Never 02/26/2022 PHQ-2 Answer Date Recorded Total Score 0 02/26/2022 [facility] of Occupat ional Health - Occupational Stress [...] to strenuous exercise (like a brisk walk)? 3 days 02/26/2022 On average, how many minutes do you engage in exercise at this level? 30 min 02/26/2022 PRAPARE - Transportation Answer Date Re corded [...] a purpose and direction in my life. Esdras hebert Agree 02/26/2022 Education Answer Date Recorded What [...] - Family Medicine [address] [place] [address] Babatunde Foreman DO [address], [place] [address] documented as of this encounter Procedures Procedure Name Priority Date/Time Associated Diagnosis Comments PSA, TOTAL AND FREE Routine 06/16/2022 documented in this encounter Results * PSA, total and free (06/16/2022) us Scanning Provider External LAB BLOOD ORDERABLES Final Result MANUALLY TRANSCRIBED RESULTS documented in this encounter Visit Diagnoses Not on filedocumented in this encounter Additional Health Concerns Assessment Noted Time PHQ-9 Depression Total Score: 0 02/27/20 22 1:21 AM EDT documented as of this encounter Care Teams Excavating Supervisor Relationship Specialty Start Date End Date Babatunde Foreman DO [address] [facility] [place] [place] [address] PCP - General Family Medicine 08/11/21 documented as of this encounter
--- OUTSIDE RECORDS SUMMARY | 2024-10-17 10:28 | XMS_ITS | Encounter Summary ---
Author Organization [employer] Address [id number] [address] [place] [address] Care Team Providers Care Armature [employer] Name Role Phone Babatunde Foreman Primary Care Provider [phone] Encounter Details Date Type Department Care Team (Late st Contact Info) Description 10/08/2024 Telephone [facility] - Family Medicine [address] [place] [address] Regina Freedman CMA Social History Tobacco Use Types Packs/Day Years Used Date Smoking Tobacco: Some Days Cigarettes 0.6 43.6 Started: [birth year]/12/1981 Smokeless Tobacco: Never Alcohol Use Standard Drinks/Week Comments Yes 0 (1 standard drink = 0.6 oz pur e alcohol) social [facility] Utilities Answer Date Recorded In the past 12 months has [employer], gas, oil, or water company threatened to [...] week 08/30/2022 How often do you attend [facility] or congregation services? Never 08/30/2022 Do you belong to any clubs o r organizations such as orthodox groups, unions, fraternal or athletic groups, or [...] Answer Date Recorded Total Score 0 09/10/2024 [facility] of Occupat ional Health - Occupational Stress [...] Recorded Do you need help finding a [facility] career center and/or a training program? [...] PM EDT documented as of this encounter Miscellaneous Notes * Telephone Encounter - Regina Freedman CMA - 10/08/2024 8:43 AM EDT ----- Message from Babatunde Foreman DO sent at 10/07/2024 4:49 PM EDT ----- A1c was 5.9% which is prediabetes. He needs to watch his diet, exercise and lose weight to try to avoid developing diabetes. Can also start metformin which may help delay the onset of diabetes. I will send that in if he agrees. ----- Message ----- From: Regina Freedman CMA Sent: 10/07/2024 10:23 AM EDT To: Babatunde Foreman DO * Telephone Encounter - Regina Freedman CMA - 10/08/2024 8:43 AM EDT Left a message for the patient to call us. * Telephone Encounter - Alyssa Estrada CMA - 10/08/2024 8:43 AM EDT Patient called back and he agrees for metformin and needs sent to [facility] documented in this encounter Plan of Treatment Upcoming Encounters Date Type Department Care Team (Late st Contact Info) Description 03/13/2025 10:45 AM EST Office Visit [facility] - Family Medicine [address] [place] [address] Babatunde Foreman DO [address], [facility] [place] [address] documented as of this encounter Visit Diagnoses Not on filedocumented in this encounter Additional Health Concerns Assessment Noted Time PHQ-9 Depression Total Score: 0 09/11/19 25 10:05 AM EDT A Body Mass Index follow-up plan has been documented for the patient 09/10/2024 1:51 PM EDT documented as of this encounter Care Teams Armature [employer] Relationship Specialty Start Date End Date Babatunde Foreman DO [address] [place] [address] PCP - General Family Medicine 08/11/21 documented as of this encounter
--- OUTSIDE RECORDS SUMMARY | 2024-10-17 10:28 | XMS_ITS | Encounter Summary ---
Author Organization [employer] Address [id number] [address] [place] [address] Care Team Providers Care Temperature Control Inspector Name Role Phone Babatunde Foreman DO Primary Care Provider Encounter Details Date Type Department Care Team (Late st Contact Info) Description 10/09/2024 Orders Only [facility] - Family Medicine [address] [place] [phone] Babatunde Foreman DO [address] [place] [address] Social History Tobacco Use Types Packs/Day Years Used Date Smoking Tobacco: Some Days Cigarettes 0.6 43.6 Started: [birth year]/12/1981 Smokeless Tobacco: Never Alcohol Use Standard Drinks/Week Comments Yes 0 (1 standard drink = 0.6 oz pur e alcohol) social [employer] Utilities Answer Date Recorded In the past 12 months has e [employer], gas, oil, or water company threatened to [...] often do you attend chur ch or tenriism services? Never 08/30/2022 Do you belong to any clubs o r organizations such as muslim groups, unions, fraternal or athletic groups, or [...] Answer Date Recorded Total Score 0 09/10/2024 [facility] [place] of Occupat ional Health - Occupational Stress [...] Recorded Do you need help finding a [facility] career center and/or a training [...] a purpose and direction in my life. Stroskylar gly Agree 02/26/2022 Education Answer Date Recorded [...] - Family Medicine [address] [place] [address] Bbaatunde Foreman DO [address] [email or web address] [place] [address] documented as of this encounter Visit Diagnoses Not on filedocumented in this encounter Additional Health Concerns Assessment Noted Time PHQ-9 Depression Total Score: 0 09/11/19 25 10:05 AM EDT A Body Mass Index follow-up plan has been documented for the patient 09/10/2024 1:51 PM EDT documented as of this encounter Care Teams Temperature Control Inspector Relationship Specialty Start Date End Date Babatunde Foreman DO [address], [place] [address] PCP - General Family Medicine 08/11/21 documented as of this encounter
--- OUTSIDE RECORDS SUMMARY | 2024-10-17 10:28 | XMS_ITS | Encounter Summary ---
Author Organization [employer] Address [id number] [address] [place] [address] Care Team Providers Care Usability Strategist Name Role Phone Babatunde Foreman Primary Care Provider Encounter Details Date Type Department Care Team (Late st Contact Info) Description 10/16/2023 Telephone [facility] - Family Medicine [address] [place] [phone] Regina Freedman CMA Social History Tobacco Use Types Packs/Day Years Used Date Smoking Tobacco: Every Day Cigarettes 0.3 50 Smokeless Tobacco: Never Alcohol Use Standard Drinks/Week Comments Yes 0 (1 standard drink = 0.6 oz pur e alcohol) social C Utilities Answer Date Recorded In the past 12 months has [employer] electric, gas, oil, or water company threatened [...] week 08/30/2022 How often do you attend [facility] or taoism services? Never 08/30/2022 Do you belong to [...] Answer Date Recorded Total Score 0 09/10/2023 [facility] of Occupat ional Health - Occupational Stress [...] Recorded Do you need help finding a [facility] career center and/or a training program? [...] Telephone Encounter - Regina Freedman CMA - 10/16/2023 1:00 PM EDT This patient is scheduled for his Colonoscopy for POS Cologard on November 20at at 11:00am. He wants the SuTabs called in to [facility]. He took a coupon because he did not like the SuPrep when he had one done before. * Telephone Encounter - Conner Wilhelm DO - 10/16/2023 1:00 PM EDT Message noted. H&P done Rx Sutab sent to pharmacy documented in this encounter Plan of Treatment Upcoming Encounters Date Type Department Care Team (Late st Contact Info) Description 03/13/2025 10:45 AM EST Office Visit [facility] - Family Medicine [address] [place] [address] Babatunde Foreman DO [address], [place] [address] documented as of this encounter Visit Diagnoses Not on filedocumented in this encounter Additional Health Concerns Assessment Noted Time PHQ-9 Depression Total Score: 0 09/10/19 24 9:56 AM EDT A Body Mass Index follow-up plan has been documented for the patient 03/09/2023 2:01 PM EST documented as of this encounter Care Teams Usability Strategist Relationship Specialty Start Date End Date Babatunde Foreman DO [address] [facility] [place] [place] [address] PCP - General Family Medicine 08/11/21 documented as of this encounter
--- OUTSIDE RECORDS SUMMARY | 2024-10-17 10:28 | XMS_ITS | Encounter Summary ---
Author Organization [facility] Address [address] [place] [address] Care Team Providers Care Institutional Research Coordinator Name Role Phone Babatunde Foreman MD Primary Care Provider [phone] Encounter Details Date Type Department Care Team (Late st Contact Info) Description 07/14/2024 Orders Only [facility] [address] [place] [address] Unallocated, Noms Provider, [address] [place] [address] Social History Tobacco Use Types Packs/Day Years Used Date Smoking Tobacco: Never Assessed Sex and Gender Information Value Date Recorded Sex Assigned at Not on file Legal Sex Male 7:24 PM EDT Gender Identity Not on file Sexual Orientation Not on file documented as of this encounter Plan of Treatment Not on file documented as of this encounter Procedures Procedure Name Priority Date/Time Associated Diagnosis Comments XR ANKLE 3+ VIEWS LEFT Routine 07/14/2024 3:33 PM EDT documented in this encounter Results * XR ankle 3+ views left (07/14/2024 3:33 PM EDT) Anatomical Region Laterality Modality Lower Extremities, Ankle Left Radiogr aphic Imaging us Noms Provider Unallocated MD EPPERSON XR PROCEDURES F inal Result documented in this encounter Visit Diagnoses Not on filedocumented in this encounter Care Teams Institutional Research Coordinator Relationship Specialty Start Date End Date Babatunde Foreman MD [address], [place] [address] PCP - General Family Medicine 07/15/24 documented as of this encounter
--- OUTSIDE RECORDS SUMMARY | 2024-10-17 10:28 | XMS_ITS | Encounter Summary ---
Author Organization [facility] Address [id number] [address] [place] [address] Care Team Providers Care Junior Systems Administrator Name Role Phone Babatunde Foreman Primary Care Provider Encounter Details Date Type Department Care Team (Late st Contact Info) Description 03/07/2022 Orders Only [facility] - Family Medicine [address] [facility] [place] [address] Meggan Diaz MA Solid nodule of lung greater than 8 mm in diameter Social History Tobacco Use Types Packs/Day Years [...] declined 02/26/2022 How often do you attend denominational or judaism serv ices? Patient declined 02/26/2022 Do you belong to any clubs o r organizations such as denominational groups, unions, fraternal or athletic groups, or [...] Answer Date Recorded Total Score 0 02/26/2022 [facility] [place] of Occupat ional Health - Occupational Stress [...] purpose and direction in my life. Esdras gly Agree 02/26/2022 Education Answer Date Recorded [...] Orientation Straight 08/16/2021 11 :31 PM EDT COVID-19 Exposure Response Date Recorded In the last month, have you been in contact with someone who was confirmed or suspected to have Coronavirus / COVID-19? No / Unsure 02/27/2022 9:33 AM EST documented as of this encounter Plan of Treatment Upcoming Encounters Date Type Department Care Team (Late st Contact Info) Description 03/13/2025 10:45 AM EST Office Visit [facility] - Family Medicine [address] [place] [phone] Babatunde Foreman DO [address], [place] [place] [address] documented as of this encounter Procedures Procedure Name Priority Date/Time Associated Diagnosis Comments CT CHEST WO CONT Routine 03/04/2022 Solid nodule of lung greater than 8 mm in diameter documented in this encounter Results * CT chest without contrast (03/04/2022) Anatomical Region Laterality Modality Body, Lung, Chest, Body Covera N/A C omputed Tomography 03/04/2022 us Babatunde Foreman DO IMG CT ORDERABLES Final Resu lt documented in this encounter Visit Diagnoses Diagnosis Solid nodule of lung greater than 8 mm in diameter documented in this encounter Additional Health Concerns Assessment Noted Time PHQ-9 Depression Total Score: 0 02/27/20 22 1:21 AM EDT documented as of this encounter Care Teams Junior Systems Administrator Relationship Specialty Start Date End Date Babatunde Foreman DO [address], [place] [address] PCP - General Family Medicine 08/11/21 documented as of this encounter
--- OUTSIDE RECORDS SUMMARY | 2024-10-17 10:28 | XMS_ITS | Encounter Summary ---
Author Organization [employer] Address [id number] [address] [place] [address] Care Team Providers Care Medical Director Name Role Phone Babatunde Foreman DO Primary Care Provider Reason for Visit * Reason Comments Med Refill Encounter Details Date Type Department Care Team (Late st Contact Info) Description 04/06/2022 Refill [facility] - Family Medicine [address] [place] [phone] Babatunde Foreman DO [address] [place], [place] [address] Social History Tobacco Use Types Packs/Day Years [...] declined 02/26/2022 How often do you attend rastafarian or scientology serv ices? Patient declined 02/26/2022 Do you belong to any clubs o r organizations such as rastafarian groups, unions, fraternal or athletic groups, or [...] Answer Date Recorded Total Score 0 02/26/2022 [facility] of Occupat ional Health - [...] - Family Medicine [address] [place] [address] Babatunde Foreman DO [address] [facility] [facility] [place] [address] documented as of this encounter Visit Diagnoses Not on filedocumented in this encounter Additional Health Concerns Assessment Noted Time PHQ-9 Depression Total Score: 0 02/27/20 22 1:21 AM EDT documented as of this encounter Care Teams Medical Director Relationship Specialty Start Date End Date Babatunde Foreman DO [address] [facility] [place] [address] PCP - General Family Medicine 08/11/21 documented as of this encounter
--- OUTSIDE RECORDS SUMMARY | 2024-10-17 10:28 | XMS_ITS | Clinical Summary ---
Author Organization [facility] Address [id number] [place] [address] Care Team Providers Care Wooling Machine Operator Name Role Phone Babatunde Foreman Primary Care Provider [phone] Allergies Active Allergy Reactions Criticality Noted Date Comments Penicillins Hives,Itching 08/15/2021 Medications tamsulosin (FLOMAX) 0.4 mg capsule Take 1 capsule (0.4 mg total) by mouth in the morning. Active aspirin 81 mg Take 1 tablet (81 mg total) by mouth in the morning. Active ibuprofen (ADVIL,MOTRIN) 200 mg tablet Take 1 tablet (200 mg total) by mouth every 6 (six) hours as needed for pain. Active multivitamin-m inerals-lutein (MULTIVITAMIN 50 PLUS) tablet Take 1 tablet by mouth in the morning. Active psyllium seed, sugar, (METAMUCIL, SUGAR,) powder Take 1 Dose by mouth daily. Active rosuvastatin (CRESTOR) 40 mg tablet TAKE 1 TABLET BY MOUTH EVERY DAY 90 tablet 3 4 Active benazepril-hyd roCHLOROthiazi de (LOTENSIN HCT) 20-12.5 mg per tablet TAKE 2 TABLETS BY MOUTH EVERY DAY 180 tablet 1 5 Active metFORMIN XR (GLUCOPHAGE XR) 500 mg 24 hr tablet Take 1 tablet (500 mg total) by mouth daily with breakfast. 90 tablet 3 Active omega-3 acid ethyl esters (LOVAZA) 1 gram capsule TAKE 2 CAPSULES BY MOUTH TWICE DAILY 360 capsule 3 5 Active omega-3 acid ethyl esters (LOVAZA) 1 gram capsule TAKE 2 CAPSULES BY MOUTH TWICE DAILY 360 capsule 1 4 025 Discontinued Active Problems Problem Noted Date Diagnosed Date Cigarette smoker 09/10/2024 Polyp of ascending colon 11/21/2023 Positive colorectal cancer screening using Colog uard test 11/11/2023 Asymptomatic microscopic hematuria 08/30/2022 08/30/2022 Benign prostatic hyperplasia with urinary obstru ction 02/27/2022 Abnormal liver function 02/27/2022 Heart murmur 02/27/2022 Hyperlipidemia 02/27/2022 Essential hypertension 02/27/2022 Obesity 02/27/2022 Venous stasis syndrome 02/27/2022 Diverticulosis of sigmoid colon 04/13/2020 Bilateral inguinal hernia 12/14/2019 Gingival disease 11/14/2017 Resolved Problems Problem Noted Date Diagnosed Date Resolved Date Stasis ulcer 02/27/2022 09/10/2024 Encounters Date Type Department Care Team Description 10/17/2024 Refill [facility] [address] [place] [address] Babatunde Foreman, 10/09/2024 Orders Only [facility] [address] [place] [address] Babatunde Foreman, 10/08/2024 Telephone [facility] [address] [place] [address] Regina Freedman CMA 10/07/2024 10:00 AM EDT Clinical Support [facility] [address] [place] [address] Babatunde Foreman, DO Abnormal glucose (Primary Dx) 10/07/2024 Travel 09/10/2024 10:00 AM EDT Office Visit [facility] [address] [place] [address] Babatunde Foreman, Well adult health check (Primary Dx); Class 2 severe obesity due to excess calories with serious comorbidity and body mass index (BMI) of 37.0 to 37.9 in adult ([facility]); Mixed hyperlipidemia; Essential hypertension; Cigarette smoker 09/09/2024 Travel 09/01/2024 Refill [facility] [address] [place] [address] Babatunde Foreman, from Last 3 Months Immunizations Immunization Administration Dates Next Due COVID-19, mRNA, LNP-S, PF, 30mcg/0.3mL Dose 09/06/2020,08/31/2020,08/16/2020,2020 Covid-19, Mrna, Lnp-s, Bival ent, Pf, 50mcg/0.5ml or 25mcg/0.25ml 01/30/2022 Influenza (IM) Preservative Free 02/11/2020,1112/2015,02/18/2015 Influenza, High-dose, Quadrivalent 01/30/2017 Influenza, Im Flucelvax (Pf) 01/21/2024 Influenza, Im Trivalent Preservative ,04/12/2015,03/24/2014,2012 Influenza, Injectable, Mdck, Preservative Free, Quad 02/22/2023,01/30/2022,01/08/2019,2016 Influenza, Injectable, quadr ivalent (PF) 01/01/2020,02/13/2018 Influenza, Unspecified 01/30/2022,2020,02/11/2020,2019,01/08/2019,02/13/2018,01/30/2017,1 05/01/2015,04/12/2015,02/18/2015, 014,03/19/2013 RSV, recombinant, protein mccurdy bunit RSVpreF, adjuvant reconstituted, 0.5 mL, PF 03/12/2024 Tdap 09/03/2022,02/26/2015 Zoster Live 03/24/2014 Zoster Vaccine Recombinant 11/06/2022,09/03/2022 Family History Medical History Relation Name Comments Glaucoma Brother Cancer Father lung Arthritis Mother Heart disease Mother Osteoporosis Mother Cancer Sister breast Relation Name Status Comments Brother Alive Father Mother Sister Alive Social History Tobacco Use Types Packs/Day Years Used Date Smoking Tobacco: Some Days Cigarettes 0.6 43.6 Started: [birth year]/12/1981 Smokeless Tobacco: Never Tobacco Cessation:Ready to Q uit: No; Counseling Given: Yes Alcohol Use Standard Drinks/Week Comments Yes 0 (1 standard drink = 0.6 oz pur e alcohol) social [employer] Utilities Answer Date Recorded In the past 12 months has e electric, gas, oil, or water [employer] threatened to shut off services in your [...] often do you attend chur ch or holiness services? Never 08/30/2022 Do you belong to any clubs o r organizations such as uatsdin groups, unions, fraternal or athletic groups, or [...] Answer Date Recorded Total Score 0 09/10/2024 [facility] - Occupational Stress [...] Recorded Do you need help finding a [facility] career center and/or a training program? [...] Orientation Straight 08/16/2021 11 :31 PM EDT Last Filed Vital Signs Vital Sign Reading Time Taken Comments Blood Pressure 118/84 09/10/2024 10:07 AM EDT Pulse 88 09/10/2024 10:07 AM EDT Temperature 36.5 C (97.7 F) 09/10/2024 10:07 AM EDT Respiratory Rate 18 09/10/2024 10:07 AM EDT Oxygen Saturation 96% 09/10/2024 10:07 AM EDT Inhaled Oxygen Concentration - - Weight 144 kg (317 lb 6.4 oz) 09/10/2024 10:07 A M EDT Height 195.6 cm (6' 5.01 ) 09/10/2024 10:07 AM E DT Body Mass Index 37.63 09/10/2024 10:07 AM EDT Plan of Treatment Upcoming Encounters Date Type Department Care Team (Late st Contact Info) Description 03/13/2025 10:45 AM EST Office Visit [facility] [address] [place] [address] Babatunde Foreman DO [address] [facility] [place] [address] Health Maintenance Due Date Last Done Comments Influenza Vaccine 12/22/2024 01/21/2024, , 01/30/2022, Additional history exists Adult BMI Follow Up Plan 09/10/2025 09/10/2024 Adult BMI Screening 09/10/2025 09/10/2024 Depression Screening 09/10/2025 09/10/2024 Tobacco Screening 09/10/2025 09/10/2024 Tobacco Counseling 03/13/2026 09/10/2024 Colon Cancer Screening 5 Year Sigmoidoscopy 11/20/2028 Postponed from 2005 (Not Indicated) Colonoscopy 11/20/2028 11/21/2023, 10/23, 11/21/2023, Additional history exists DTaP,Tdap and Td Vaccines (3 - Td or Tdap) 09/03/2032 09/03/2022, 02/26/2015 Zoster (Shingles) Vaccine Completed 2022, 09/03/2022, 03/24/2014 COVID-19 Vaccine Completed 01/21/2024, 05/2022, 01/30/2022, Additional history exists Medical Devices Implanted Type Area Drug Coordinator Device Identifier Shelf Expiration Date Model / Serial / Lot Lens Iol Panop [id number] 9.5d - [id number] - [id number] Implanted:Qty: 1 on 08/16/2021 by Monserrat Flor MD at [facility] Lens Left: Eye [employer] 05/18/2023 TFNT40 +9.5D / [id number] / Acrysof Iq Panoptic Toric Implanted:Qty: 1 on 10/02/2023 by Monserrat Flor MD at [facility] Lens [employer] 04/07/2025 TFNT60 / [id number] / NA Procedures Procedure Name Priority Date/Time Associated Diagnosis Comments POCT HEMOGLOBIN A1C Routine 10/07/2024 1 0:23 AM EDT Abnormal glucose COMPREHENSIVE METABOLIC PANEL Routine 09/10/2024 11:02 AM EDT Well adult health check LIPID PROFILE Routine 09/10/2024 11:02 AM EDT Well adult health check PROVATION COLONOSCOPY Routine 11/21/2023 10:15 AM EDT from Last 3 Months or Most Recently Relevant to Health Maintenance Results * POCT Hemoglobin A1c (10/07/2024 10:23 AM EDT) External Poct Hgb A1C 5.9 4 - 7 % MANUALLY TRANSCRIBED RESULTS Blood 10/07/2024 10:2 3 AM EDT us Babatunde Foreman DO POINT OF CARE TEST ORDERABLE S Final Result MANUALLY TRANSCRIBED RESULTS * (ABNORMAL) Lipid profile (09/10/2024 11:02 AM EDT) CHOLESTEROL 129(L) 150 - 200 mg/dL 09/10/2024 9:32 PM EDT [facility] TRIGLYCERIDE 204(H) 27 - 150 mg/dL 09/10/2024 9:32 PM EDT [facility] HDL CHOLESTEROL 36(L) >39 mg/dL 9:32 PM EDT [facility] Comment: HDL <40 mg/dL - High Risk HDL > or = 40mg/dL- Desirable HDL >60 mg/dL - Negative Risk LDL (CALC) 52 <130 mg/dL 09/10/2024 9:32 PM EDT [facility] Comment: LDL <100 mg/dL - Desirable LDL >160 mg/dL - High Risk CHOLESTEROL:HDL 3.6 1.0 - 5.0 9:32 PM EDT [facility] VERY LOW LIPOPROTEIN 41(H) 0 - 30 mg/dL 09/10/2024 9:32 PM EDT [facility] Blood Venous blood / Unknown 09/10/2024 11:02 AM EDT 09/10/2024 11:03 AM EDT us Babatunde Foreman DO LAB BLOOD ORDERABLES Final R esult [facility] [address] [place] [address], [place] [phone] * (ABNORMAL) Comprehensive metabolic panel (09/10/2024 11:02 AM EDT) SODIUM 141 134 - 146 mmol/L 09/10/2024 9:32 PM EDT [facility] POTASSIUM 3.9 3.5 - 5.0 mmol/L 09/10/2024 9:32 PM EDT [facility] CHLORIDE 104 98 - 109 mmol/L 09/10/2024 9:32 PM EDT [facility] CARBON DIOXIDE 30 22 - 32 mmol/L 09/10/2024 9:32 PM EDT [facility] ANION GAP 7 5 - 15 mmol/L 09/10/2024 9:32 PM EDT [facility] BLOOD UREA NITROGEN 17 5 - 27 mg/dL 09/10/2024 9:32 PM EDT [facility] CREATININE 0.92 0.60 - 1.30 mg/dL 09/10/2024 9:32 PM EDT [facility] Comment:METHOD TRACEABLE TO [facility] STANDARD GLUCOSE 105(H) 65 - 99 mg/dL 09/10/2024 9:32 PM EDT [facility] CALCIUM 9.6 8.5 - 10.5 mg/dL 09/10/2024 9:32 PM EDT [facility] TOTAL PROTEIN 6.6 6.0 - 8.0 g/dL 09/10/2024 9:32 PM EDT [facility] ALBUMIN 4.3 3.2 - 5.3 g/dL 09/10/2024 9:32 PM EDT [facility] ALKALINE PHOSPHATASE 54 39 - 130 U/L 09/10/2024 9:32 PM EDT [facility] AST 26 <=41 U/L 09/10/2024 9:32 PM EDT [facility] ALT 27 <=40 U/L 09/10/2024 9:32 PM EDT [facility] BILIRUBIN,TOTAL 0.6 0.3 - 1.2 mg/dL 09/10/2024 9:32 PM EDT [facility] EGFR Non-Race Dependent >90 >=60 ml/min/1.7 3sq.m 09/10/2024 9:32 PM EDT [facility] Comment: Reported eGFR is based on the CKD-EPI 2020 equation that does not use a race coefficient. Blood Venous blood / Unknown 09/10/2024 11:02 AM EDT 09/10/2024 11:03 AM EDT us Babatunde Foreman DO LAB BLOOD ORDERABLES Final R esult [facility] [address] [place] [address], [place] [phone] * Colonoscopy Report (11/21/2023 10:15 AM EDT) Narrative SYSTEMGENERATED, DOCUMENTATION - 11/21/2023 10:15 AM EDT This order has been auto-finalized for image and report archival in PACs. *For full report details, please reach out to your physician. This image is visible to you in MyChart.* Conner Wilhelm DO IMG OR IMG ORDERABLES Final Resu lt from Last 3 Months or Most Recently Relevant to Health Maintenance Insurance [employer] Care Teams Wooling Machine Operator Relationship Specialty Start Date End Date Babatunde Foreman DO [address] [place] [address] PCP - General Family Medicine 08/11/21
--- OUTSIDE RECORDS SUMMARY | 2024-10-17 10:28 | XMS_ITS | Clinical Summary ---
Author Organization [facility] Healthcare Address [address] [place] [address] Care Team Providers Care Manager Budget Name Role Phone Babatunde Formean MD Primary Care Provider Allergies Active Allergy Reactions Criticality Noted Date Comments Penicillins Hives,Itching 08/15/2021 FROM INJECTION Medications benazepril-hydroC HLOROthiazide (Lotensin HCT) 20-12.5 MG tablet Take 2 tablets by mouth Daily Active rosuvastatin (Crestor) 40 MG tablet Take 40 mg by mouth Daily Active tamsulosin (Flomax) 0.4 MG 24 hr capsule Take 0.4 mg by mouth Daily Active omega-3 acid ethyl esters (Lovaza) 1 g capsule Take 2 g by mouth in the morning and 2 g before bedtime. Active aspirin 81 MG EC tablet 1 (one) time each day at the same time Active ibuprofen 200 MG tablet Take 200 mg by mouth every 6 (six) hours if needed Active PSYLLIUM PO Take 1 Dose by mouth 1 (one) time each day at the same time Active Misc. Devices miscIndications:C losed nondisplaced fracture of lateral malleolus of left fibula, initial encounter Dispense: Front Wheeled walker use 90 days. Ht: 6'5 Weight: 320lbs Dx: S82.65XA 1 Units 5 Active Active Problems No known active problems Encounters Date Type Department Care Team Description 10/01/2024 10:20 AM EDT Ancillary Procedure [facility] [address] [place] [address] 10/01/2024 10:15 AM EDT Office Visit [facility] [address] [place] [address] Slava Chun PA Acute left ankle pain (Primary Dx); Closed nondisplaced fracture of lateral malleolus of left fibula with routine healing, subsequent encounter 10/01/2024 Bamboo flowsheet [facility] [address] [place] [address] Slava Chun PA 10/01/2024 Travel 09/30/2024 Travel 09/03/2024 10:15 AM EDT Ancillary Procedure [facility] [place] [address] 09/03/2024 10:15 AM EDT Office Visit [facility] [address] [place] [address] Slava Chun PA Closed nondisplaced fracture of lateral malleolus of left fibula with routine healing, subsequent encounter (Primary Dx); Acute left ankle pain 09/03/2024 Bambo [employer] [facility] [address] [place] [address] Slava Chun PA 09/03/2024 Travel 09/02/2024 Travel 08/19/2024 10:20 AM EDT Ancillary Procedure [facility] [place] [address] 08/19/2024 10:00 AM EDT Office Visit [facility] [address] [place] [address] Slava Chun PA Acute left ankle pain (Primary Dx); Closed nondisplaced fracture of lateral malleolus of left fibula with routine healing, subsequent encounter 08/19/[facility] [address] [place] [address] Slava Chun PA 08/19/2024 Travel 08/16/2024 Travel 08/12/2024 Travel 07/22/2024 10:20 AM EDT Ancillary Procedure [facility] [address] [address] 07/22/2024 10:00 AM EDT Office Visit [facility] [address] [place] [address] Slava Chun PA Acute left ankle pain (Primary Dx); Closed nondisplaced fracture of lateral malleolus of left fibula with routine healing, subsequent encounter 07/22/2024 Bamboo flowsheet [facility] [address] [place] [address] Slava Chun PA 07/22/2024 Travel from Last 3 Months Social History Tobacco Use Types Packs/Day Years Used Date Smoking Tobacco: Every Day Cigarettes Smokeless Tobacco: Never Tobacco Cessation:Ready to Q uit: Not Asked; Counseling Given: Not Answered Alcohol Use Standard Drinks/Week Comments Yes 0 (1 standard drink = 0.6 oz pur e alcohol) RARELY Sex and Gender Information Value Date Recorded Sex Assigned at Not on file Legal Sex Male 7:24 PM EDT Gender Identity Not on file Sexual Orientation Not on file Last Filed Vital Signs Vital Sign Reading Time Taken Comments Blood Pressure 134/86 04/06/2020 12:00 PM EST Pulse - - Temperature - - Respiratory Rate - - Oxygen Saturation - - Inhaled Oxygen Concentration - - Weight 145 kg (320 lb) 07/15/2024 11:24 AM EDT Height 195.6 cm (6' 5 ) 07/15/2024 11:24 AM EDT Body Mass Index 37.95 07/15/2024 11:24 AM EDT Plan of Treatment Health Maintenance Due Date Last Done Comments CT Colonography 1960 FIT 1960 FOBT 1960 Sigmoidoscopy 1960 FIT-DNA 09/25/2026 09/26/2023 Colonoscopy 11/20/2033 11/21/2023 Colorectal Cancer Screening 11/20/2033 Influenza Vaccine Completed 01/21/2024, , 01/30/2022, Additional history exists Procedures Procedure Name Priority Date/Time Associated Diagnosis Comments XR ANKLE 3+ VIEWS LEFT Routine 10/01/2024 10:19 AM EDT Closed nondisplaced fracture of lateral malleolus of left fibula with routine healing, subsequent encounter XR ANKLE 3+ VIEWS LEFT Routine 09/03/2024 10:13 AM EDT Closed nondisplaced fracture of lateral malleolus of left fibula with routine healing, subsequent encounter XR ANKLE 3+ VIEWS LEFT Routine 08/19/2024 10:19 AM EDT Closed nondisplaced fracture of lateral malleolus of left fibula with routine healing, subsequent encounter XR ANKLE 3+ VIEWS LEFT Routine 07/22/2024 10:15 AM EDT Closed nondisplaced fracture of lateral malleolus of left fibula with routine healing, subsequent encounter from Last 3 Months Results * XR ankle 3+ views left (10/01/2024 10:19 AM EDT) Only the most recent of4 resultswithin the time period is included. Anatomical Region Laterality Modality Lower Extremities, Ankle Left Radiogr aphic Imaging Narrative 10/01/2024 10:42 AM EDT Imaging Result: AP Lateral and oblique left ankle: Obligue fracture distal fibula with more callus formation noted Ankle mortise preserved No new fracture or dislocation: Impression: healing lateral malleolus fracture in unchanged position and alignment. us Slava ROJAS IMG XR PROCEDURES Final Resul t from Last [address] [place] [address] Care Teams Manager Budget Relationship Specialty Start Date End Date Babatunde Foreman MD [address] [facility], [address] [place] [phone] PCP - General Family Medicine 07/15/24
[2024-10-17 11:22] LABS: Prostate Specific Antigen Dx 0.89 ng/mL (<=4.00)
== END 2024-10-17 10:25 | disposition home or self-care (01) ==
PROVIDERS: PCP Family Medicine; Visit Provider Urology
DX: N40.1 Benign prostatic hyperplasia with lower urinary tract symptoms (principal)
CPT/HCPCS: 36415; 84153

== ENCOUNTER 2025-04-06 09:14 | Outpatient (OUT) | payer OTHER, SELFPAY ==
--- NOTE | 2025-04-06 09:17 | CT_ITS ---
The [address] [address] Patient Name: HEATHER PIRES MRN: [id number] date: 1960 Sex: M Assigned Patient Location: CT Current Patient Location: CT Accession/Order Number: [id number] Exam Date: 04/06/2025 09:20 Report Date: 04/06/2025 11:05 At the request of: MANJULA PIEDRA Procedure: CT lung screening low-dose LOW-DOSE SCREENING CHEST CT WITHOUT CONTRAST COMPARISON: 04/04/2024 CLINICAL DATA: Former smoker with 50 pack year history. Spiral axial unenhanced low-dose images were obtained through the chest. Images were reviewed using both narrow and wide window settings This CT exam was performed using one or more following dose reduction techniques: Automated exposure control, adjustment of the mA and/or kV according to patient size, or use of iterative reconstruction technique. The heart is normal size. No pericardial effusion is present. There is coronary artery disease. There is continued mild dilatation ascending aorta with diameter 4.3 cm. No enlarged lymph nodes are seen. Similar degenerative changes are present spine. Obstructive changes are present. There is minor scarring at the lung apices. Minimal scarring or atelectasis is present at the apex of the superior segment of the right lower lobe. There is no additional consolidation, pleural effusion or pneumothorax. There is a tiny 3 mm nodular density at the posterior right upper lobe on axial image 66. This is not obvious on the prior however there was some motion at that time. A somewhat nodular focus at the superior segment of the left lower lobe (axial image 107) is unchanged. The upper imaged lungs show no contributory abnormalities. CT/CT lung screening low-dose IMPRESSION: OBSTRUCTIVE LUNG DISEASE. TINY PULMONARY NODULES, DESCRIBED. Lung RADS category 2 - benign Twelve-month low-dose CT follow-up suggested. Impression dictated by: Desirae Marcano M.D. 04/06/2025 11:05 AM Dictation Location: [place] [address] Electronically authenticated by: [id number] Y Date: 04/06/2025 11:05
== END 2025-04-06 09:15 | disposition home or self-care (01) ==
LOC: CT 09:14
PROVIDERS: PCP Family Medicine; Visit Provider Family Medicine
DX: J44.9 Chronic obstructive pulmonary disease, unspecified (principal); Z87.891 Personal history of nicotine dependence; R91.8 Other nonspecific abnormal finding of lung field
CPT/HCPCS: 71271